=== PATIENT | male | born 1965 | race Caucasian/White ===

== ENCOUNTER 2017-03-18 20:00 | Emergency (ER) | payer MEDICAID ==
[2017-03-18] MEDS ORDERED: diazePAM 5 MG TABLET PO STA (20:40)
--- NOTE | 2017-03-18 20:43 | ED Physician Documentation ---
PD HPI FOCAL NEURO - Stated complaint Stated Complaint: DIZZY/HEADACHE - Chief complaint Chief Complaint: Neuro - History obtained from History obtained from: Patient, Family () - History of Present Illness Timing - onset: Other (51-year-old gentleman who has had occasional fleeting vertigo in the past has had it more consistently since late morning today. It is worse, usually if he turns his head to the left. There is a mild frontal headache with it and he is under a lot of stress at work right now. He denies weakness, numbness, or tingling in the extremities. Of note it sounds like he has some sort of nephropathy and premature osteoporosis as well as gout. Currently on no medications.) Review of Systems Constitutional: denies: Fever, Chills Eyes: denies: Loss of vision, Decreased vision, Photophobia, Discharge, Irritation Ears: denies: Loss of hearing, Ear pain Nose: reports: Rhinorrhea / runny nose, Congestion Throat: denies: Sore throat PD PAST MEDICAL HISTORY - Past Medical History Cardiovascular: None Respiratory: None Neuro: None Endocrine/Autoimmune: None GI: None : Kidney stones HEENT: None Psych: Anxiety Musculoskeletal: None Derm: None - Past Surgical History Past Surgical History: No - Present Medications Home Medications: Ambulatory Orders Medication Instructions Recorded Confirmed Meclizine [Antivert] 25 mg PO Q6H PRN #20 tablet 03/18/17 - Allergies Allergies/Adverse Reactions: Allergies Allergy/AdvReac Type Severity Reaction Status Date / Time No Known Drug Allergies Allergy Verified 03/18/15 13:14 - Social History Does the pt smoke?: Yes Smoking Status: Current every day smoker Does the pt drink ETOH?: No Does the pt have substance abuse?: No - Immunizations Immunizations are current?: Yes - POLST Patient has POLST: No PD ED PE NORMAL - Vitals Vital signs reviewed: Yes - General General: Alert and oriented X 3, No acute distress - HEENT HEENT: PERRL, EOMI, Ears normal, Moist mucous membranes, Pharynx benign, Dentition benign - Neck Neck: Supple, no meningeal sign, No bony TTP - Cardiac Cardiac: RRR, No murmur - Respiratory Respiratory: No respiratory distress, Clear bilaterally - Abdomen Abdomen: Non tender - Derm Derm: Normal color, Warm and dry - Extremities Extremities: No edema, No calf tenderness / cord - Neuro Neuro: Alert and oriented X 3, 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 Positive [place]-Hallpike's test.) - Psych Psych: Normal mood, Normal affect Results - Vitals Vitals: Vital Signs - 24 hr 03/18/17 20:09 Temperature 36.3 C L Heart Rate 67 Respiratory 18 Rate Blood Pressure 178/97 H O2 Saturation 99 Oxygen O2 Source Room air - Labs Labs: Laboratory Tests 03/18/17 20:49 Sodium 140 Potassium 4.3 Chloride 101 Carbon Dioxide 31 Anion Gap 8.0 BUN 15 Creatinine 0.7 Estimated GFR (MDRD) 120 Glucose 102 H Calcium 9.5 Magnesium 1.9 - Rads (name of study) Head CT Radiology: EMP read contemporaneously (NAD) PD MEDICAL DECISION MAKING - ED course ED course: 51-year-old gentleman presents with what sounds like recurrent peripheral vertigo but there are some atypical symptoms and medical history. Including a history of nephropathy, and headache. Although he is under a lot of stress which may explain the headache. Departure - Departure Disposition: 01 Home, Self Care Clinical Impression: Peripheral vertigo Qualifiers: Laterality: left Qualified Code(s): H81.392 - Other peripheral vertigo, left ear Headache Qualifiers: Headache type: tension-type Headache chronicity pattern: acute headache Intractability: not intractable Qualified Code(s): G44.209 - Tension-type headache, unspecified, not intractable Condition: Good Record reviewed to determine appropriate education?: Yes Instructions: ED Cephalgia Unspecified, ED BPV Vertigo Prescriptions: Meclizine [Antivert] 25 mg PO Q6H PRN #20 tablet PRN Reason: Dizziness Comments: Call your doctor to arrange a follow-up appointment, make the next available appointment. In the interim, return anytime if worse or if new symptoms develop. Your blood pressure was elevated today on check into the emergency department. This does not mean that you have hypertension, it is a common phenomenon to come to the emergency department and have elevated blood pressure. I recommend that she see her primary care physician within the week to have it rechecked when you are feeling better.
[2017-03-18] MEDS ORDERED: diazePAM 5 MG TABLET PO ONE (20:48)
[2017-03-18 21:03] LABS: CALCIUM 9.5 mg/dL (8.5-10.3); CREATININE 0.7 mg/dL (0.6-1.2); MAGNESIUM 1.9 mg/dL (1.7-2.8); POTASSIUM 4.3 mmol/L (3.5-5.0)
--- NOTE | 2017-03-18 21:20 | CT Preliminary Report ---
Exam: CT Head W/O IMPRESSION: Normal head CT. [facility] SITE ID: [id number]
--- NOTE | 2017-03-18 21:23 | CT Report ---
EXAM: CT HEAD EXAM DATE: 03/18/2017 09:02 PM. CLINICAL HISTORY: Vertigo headache. COMPARISON: None. TECHNIQUE: Multiaxial CT images were obtained from the foramen magnum to the vertex. IV contrast: Non e. Reformats: Coronal. In accordance with CT protocol optimization, one or more of the following dose reduction techniques w ere utilized for this exam: automated exposure control, adjustment of mA and/or KV based on patient s ize, or use of iterative reconstructive technique. FINDINGS: Parenchyma: No intraparenchymal hemorrhage. No evidence of mass, midline shift, or CT findings of inf arction. Hollis-white differentiation is distinct. Extraaxial Spaces: Normal for age. No subdural or epidural collections. Ventricles: Normal in size and position. Sinuses: Imaged paranasal sinuses, orbits, and mastoids show no significant abnormality. Bones: Unremarkable. Other: None. IMPRESSION: Normal head CT. [facility] Referring Provider Line: [phone] SITE ID: [id number]
[2017-03-18] MEDS ORDERED: MECLIZINE 12.5 MG TABLET PO STA (21:40)
[2017-03-18] MEDS ORDERED: MECLIZINE 12.5 MG TABLET PO ONE (21:48)
[2017-03-18 21:55] VITALS: BP 159/92
== END 2017-03-18 21:53 | disposition home or self-care (01) ==
LOC: ED 20:00
DX: H81.392 Other peripheral vertigo, left ear (principal); G44.209 Tension-type headache, unspecified, not intractable; F17.200 Nicotine dependence, unspecified, uncomplicated; R03.0 Elevated blood-pressure reading, without diagnosis of hypertension
CPT/HCPCS: 36415; 70450; 80048; 83735; 99283; A9270

== ENCOUNTER 2017-07-07 12:53 | Outpatient (CLI) | payer MEDICAID ==
--- NOTE | 2017-07-08 10:20 | DEXA Report ---
DEXA: 07/07/2017 CLINICAL INDICATION: Osteoporosis, Fosamax therapy. TECHNIQUE: Dual energy x-ray absorptiometry (DXA) was performed on a [employer] system. Regions measured are the AP spine, femoral neck, and, if needed, forearm. COMPARISON: None. In accordance with the International Society for Clinical Densitometry (ISCD) guidelines, data from previous exams may be reanalyzed using current recommendations and techniques. This is done to allow a more accurate basis for comparison with the current study. FINDINGS LUMBAR SPINE DATA: REGION BMD (g/cm/cm) T-SCORE Z-SCORE L1 1.033 -1.1 -0.4 L2 1.146 -0.8 -0.1 L3 1.352 0.9 1.6 L4 1.176 -0.5 0.1 TOTAL 1.185 -0.3 0.4 NOTE: All evaluable vertebrae are used for classification. RIGHT HIP DATA: REGION BMD (g/cm/cm) T-SCORE Z-SCORE Neck 0.695 -2.9 -1.9 TOTAL 0.765 -2.3 -1.7 NOTE: The femoral neck or total proximal femur, whichever is lowest, is used for classification. IMPRESSION THE WHO CLASSIFICATION BASED ON THE INTERNATIONAL REFERENCE STANDARD: OSTEOPOROSIS (REFERENCE RIGHT FEMORAL NECK). FRACTURE RISK: HIGH. RECOMMENDATION: Patients with diagnosis of osteoporosis or osteopenia should have regular bone mineral density assessment. For those eligible for Medicare, routine testing is allowed once every 2 years. Testing frequency can be increased for patients who have rapidly progressing disease or for those who are receiving medical therapy to restore bone mass. COMMENT: World Health Organization (WHO) definitions for osteoporosis and osteopenia: NORMAL BMD: T-score at -1.0 or higher, fracture risk is low. OSTEOPENIA BMD: T-score between -1.0 and -2.5, fracture risk is increased. OSTEOPOROSIS BMD: T-score at -2.5 or lower, fracture risk high. National Osteoporosis Foundation recommends: 1. Obtain adequate dietary calcium (at least 1200 mg per day) and vitamin D (400 -800 international units per day). 2. Participate, as appropriate, in regular weightbearing and muscle- strengthening exercise. 3. Avoid tobacco use and reduce alcohol and caffeine intake. 4. For more detailed information see the website at www.NOF.org. MTDD
== END 2017-07-07 12:54 | disposition home or self-care (01) ==
LOC: DI 12:53
PROVIDERS: ATTEND Nurse Practitioner Family
DX: M81.0 Age-related osteoporosis without current pathological fracture (principal); Z79.83 Long term (current) use of bisphosphonates
CPT/HCPCS: 77080

== ENCOUNTER 2018-01-27 11:23 | Outpatient (CLI) | payer MEDICAID ==
[2018-01-27 17:26] LABS: BASOPHILS # (AUTO) 0.1 10^3/uL (0.0-0.1); BASOPHILS % (AUTO) 0.8 %; EOSINOPHILS # (AUTO) 0.2 10^3/uL (0.0-0.7); EOSINOPHILS % (AUTO) 3.4 %; HGB - HEMOGLOBIN 15.7 g/dL (14.0-18.0); LYMPHOCYTES # (AUTO) 1.7 10^3/uL (1.5-3.5); LYMPHOCYTES % (AUTO) 26.6 %; MEAN CORPUSCULAR HEMOGLOBIN 35.4 pg (27.0-31.0); MEAN CORPUSCULAR HGB CONC 34.1 g/dL (32.0-36.0); MEAN CORPUSCULAR VOLUME 103.8 fL (80.0-94.0); MONOCYTES # (AUTO) 0.5 10^3/uL (0.0-1.0); MONOCYTES % (AUTO) 8.3 %; NEUTROPHILS % (AUTO) 60.9 %; PLT - PLATELET COUNT 175 10^3/uL (130-450); RED BLOOD COUNT 4.43 10^6/uL (4.70-6.10); WHITE BLOOD COUNT 6.5 x10^3/uL (4.8-10.8)
[2018-01-27 17:43] LABS: ALBUMIN 4.5 g/dL (3.2-5.5); ALBUMIN/GLOBULIN RATIO 1.5 (1.0-2.2); ALKALINE PHOSPHATASE 53 IU/L (42-121); ALT ALANINE AMINOTRANSFERASE 31 IU/L (10-60); AST ASPARTATE AMINOTRANSFERASE 42 IU/L (10-42); BILIRUBIN,TOTAL 0.5 mg/dL (0.2-1.0); BUN - BLOOD UREA NITROGEN 11 mg/dL (6-20); CALCIUM 9.4 mg/dL (8.5-10.3); CARBON DIOXIDE - CO2 28 mmol/L (21-32); CHLORIDE 103 mmol/L (101-111); CHOLESTEROL 251 mg/dL; CREATININE 0.7 mg/dL (0.6-1.2); GFR - MDRD 119 (>89); GLUCOSE 109 mg/dL (70-100); HDL CHOLESTEROL 42 mg/dL; SODIUM 139 mmol/L (135-145); TOTAL PROTEIN 7.5 g/dL (6.7-8.2); URIC ACID 7.6 mg/dL (2.6-7.2)
[2018-01-27 17:55] LABS: THYROID STIMULATING HORMONE 1.81 uIU/mL (0.34-5.60)
[2018-01-27 18:02] LABS: LDL CHOLESTEROL,DIRECT 99 mg/dL; LDLD/HDL RATIO 2.4 (<3.6)
== END 2018-01-27 11:24 | disposition home or self-care (01) ==
LOC: LAB.F 11:23
PROVIDERS: ATTEND Nurse Practitioner Family
DX: M81.0 Age-related osteoporosis without current pathological fracture (principal); Z13.228 Encounter for screening for other metabolic disorders; Z13.1 Encounter for screening for diabetes mellitus; Z13.220 Encounter for screening for lipoid disorders; Z12.5 Encounter for screening for malignant neoplasm of prostate; Z13.29 Encounter for screening for other suspected endocrine disorder; M10.9 Gout, unspecified; Z13.0 Encounter for screening for diseases of the blood and blood-forming organs and certain disorders involving the immune mechanism
CPT/HCPCS: 36415; 80053; 80061; 82306; 82652; 83721; 83970; 84153; 84443; 84550; 85025

== ENCOUNTER 2018-02-03 11:12 | Outpatient (CLI) | payer MEDICAID ==
[2018-02-03 18:25] LABS: HB2 TOTAL 17.1 g/dL; HEMOGLOBIN A1C 0.6 g/dL; HEMOGLOBIN A1C % 5.4 % (4.6-6.2)
[2018-02-03 18:41] LABS: FOLATE 2.46 ng/mL (5.90 - >24.8)
== END 2018-02-03 11:13 | disposition home or self-care (01) ==
LOC: LAB.F 11:12
PROVIDERS: ATTEND Nurse Practitioner Family
DX: D53.9 Nutritional anemia, unspecified (principal); R73.9 Hyperglycemia, unspecified
CPT/HCPCS: 36415; 82607; 82746; 82977; 83036

== ENCOUNTER 2018-07-11 09:29 | Outpatient (CLI) | payer MEDICAID ==
[2018-07-11 17:52] LABS: BASOPHILS # (AUTO) 0.1 10^3/uL (0.0-0.1); BASOPHILS % (AUTO) 0.8 %; EOSINOPHILS # (AUTO) 0.2 10^3/uL (0.0-0.7); EOSINOPHILS % (AUTO) 2.9 %; HGB - HEMOGLOBIN 15.2 g/dL (14.0-18.0); LYMPHOCYTES # (AUTO) 1.8 10^3/uL (1.5-3.5); LYMPHOCYTES % (AUTO) 27.3 %; MEAN CORPUSCULAR HEMOGLOBIN 34.6 pg (27.0-31.0); MEAN CORPUSCULAR HGB CONC 33.7 g/dL (32.0-36.0); MEAN CORPUSCULAR VOLUME 102.9 fL (80.0-94.0); MEAN PLATELET VOLUME 9.5 fL (7.4-11.4); MONOCYTES # (AUTO) 0.6 10^3/uL (0.0-1.0); MONOCYTES % (AUTO) 8.5 %; NEUTROPHILS # (AUTO) 4.1 10^3/uL (1.5-6.6); NEUTROPHILS % (AUTO) 60.5 %; PLT - PLATELET COUNT 202 10^3/uL (130-450); RED BLOOD COUNT 4.38 10^6/uL (4.70-6.10); RED CELL DISTRIBUTION WIDTH 13.4 % (12.0-15.0); WHITE BLOOD COUNT 6.7 x10^3/uL (4.8-10.8)
[2018-07-11 18:16] LABS: ALBUMIN 4.4 g/dL (3.2-5.5); ALBUMIN/GLOBULIN RATIO 1.3 (1.0-2.2); ALKALINE PHOSPHATASE 55 IU/L (42-121); ALT ALANINE AMINOTRANSFERASE 24 IU/L (10-60); AST ASPARTATE AMINOTRANSFERASE 34 IU/L (10-42); BILIRUBIN,TOTAL 0.9 mg/dL (0.2-1.0); BUN - BLOOD UREA NITROGEN 9 mg/dL (6-20); CALCIUM 8.9 mg/dL (8.5-10.3); CARBON DIOXIDE - CO2 30 mmol/L (21-32); CHLORIDE 99 mmol/L (101-111); CHOL/HDL RATIO 5.3 (<5.0); CHOLESTEROL 246 mg/dL; CREATININE 0.6 mg/dL (0.6-1.2); GFR - MDRD 142 (>89); GLUCOSE 102 mg/dL (70-100); HDL CHOLESTEROL 46 mg/dL; SODIUM 139 mmol/L (135-145); TOTAL PROTEIN 7.7 g/dL (6.7-8.2); URIC ACID 7.6 mg/dL (2.6-7.2)
[2018-07-11 18:35] LABS: FOLATE 12.34 ng/mL (5.90 - >24.8)
[2018-07-11 18:46] LABS: LDL CHOLESTEROL,DIRECT 122 mg/dL; LDLD/HDL RATIO 2.7 (<3.6)
== END 2018-07-11 23:59 | disposition home or self-care (01) ==
LOC: LAB.S 09:29
PROVIDERS: ATTEND Nurse Practitioner
DX: E78.1 Pure hyperglyceridemia (principal); E55.9 Vitamin D deficiency, unspecified; D53.9 Nutritional anemia, unspecified; I10 Essential (primary) hypertension; M10.9 Gout, unspecified
CPT/HCPCS: 36415; 80053; 80061; 82306; 82607; 82746; 83721; 84550; 85025

== ENCOUNTER 2018-11-30 10:23 | Outpatient (CLI) | payer MEDICAID ==
[2018-11-30 18:11] LABS: CHOL/HDL RATIO 4.6 (<5.0); CHOLESTEROL 243 mg/dL; HDL CHOLESTEROL 53 mg/dL; LDL CHOLESTEROL,CALCULATED 155 mg/dL; LDL/HDL RATIO 2.9 (<3.6); VLDL CHOLESTEROL 35 mg/dL
== END 2018-11-30 10:24 | disposition home or self-care (01) ==
LOC: LAB.F 10:23
PROVIDERS: ATTEND Nurse Practitioner
DX: E78.1 Pure hyperglyceridemia (principal); Z12.11 Encounter for screening for malignant neoplasm of colon
CPT/HCPCS: 36415; 80061; 83721

== ENCOUNTER 2019-10-12 08:26 | Outpatient (CLI) | payer MEDICAID ==
[2019-10-12 10:50] LABS: ALBUMIN 4.2 g/dL (3.2-5.5); ALBUMIN/GLOBULIN RATIO 1.6 (1.0-2.2); ALKALINE PHOSPHATASE 33 IU/L (42-121); ALT ALANINE AMINOTRANSFERASE 16 IU/L (10-60); AST ASPARTATE AMINOTRANSFERASE 19 IU/L (10-42); BILIRUBIN,TOTAL 0.6 mg/dL (0.2-1.0); BUN - BLOOD UREA NITROGEN 8 mg/dL (6-20); CALCIUM 9.7 mg/dL (8.5-10.3); CARBON DIOXIDE - CO2 26 mmol/L (21-32); CHLORIDE 103 mmol/L (101-111); CHOLESTEROL 210 mg/dL; CREATININE 0.7 mg/dL (0.6-1.2); GFR - MDRD 118 (>89); GLUCOSE 107 mg/dL (70-100); HDL CHOLESTEROL 42 mg/dL; LDL CHOLESTEROL,CALCULATED 110 mg/dL; LDL/HDL RATIO 2.6 (<3.6); SODIUM 137 mmol/L (135-145); TOTAL PROTEIN 6.9 g/dL (6.7-8.2); VLDL CHOLESTEROL 58 mg/dL
== END 2019-10-12 08:27 | disposition home or self-care (01) ==
LOC: LAB.S 08:26
PROVIDERS: ATTEND Internal Medicine
DX: E78.1 Pure hyperglyceridemia (principal); K52.9 Noninfective gastroenteritis and colitis, unspecified
CPT/HCPCS: 36415; 80053; 80061; 83516; 83721

== ENCOUNTER 2020-05-07 08:00 | Outpatient (CLI) | payer MEDICAID ==
--- NOTE | 2020-05-07 16:24 | XRAY Report ---
PROCEDURE: Lumbar Spine Complete INDICATIONS: LUMBOSACRAL RADICULOPATHY TECHNIQUE: 4 views of the lumbar spine were acquired. COMPARISON: None. FINDINGS: Bones: 5 [id number] vertebrae are present. Moderate disc height loss at L5-S1. Mild disc hei ght loss at the other levels. Trace retrolisthesis L1 on 2 and L2 on 3. Trace retrolisthesis L4 on 5. No vertebral body compression fractures. No suspicious bony lesions. Oblique images demonstrate no pars defects. Soft tissues: Overlying bowel gas pattern is normal. No suspicious soft tissue calcifications. Mod erate abdominal aortic calcification. IMPRESSION: 1. Mild to moderate multilevel spondylosis, most disc height loss at the L5-S1 level. Reviewed by: Kitty Grubbs MD on 05/07/2020 4:23 PM PDT Approved by: Kitty Grubbs MD on 05/07/2020 4:23 PM PDT Station ID: [id number]
== END 2020-05-07 23:59 | disposition home or self-care (01) ==
LOC: DI.S 08:00
PROVIDERS: ATTEND Physician Assistant Medical
DX: M47.27 Other spondylosis with radiculopathy, lumbosacral region (principal)
CPT/HCPCS: 72110

== ENCOUNTER 2021-05-01 08:51 | Outpatient (CLI) | payer MEDICAID ==
[2021-05-01 08:58] LABS: MUDS CUTOFF CONCENTRATIONS CUTOFF CONC BELOW:
[2021-05-01 14:33] LABS: BASOPHILS # (AUTO) 0.1 10^3/uL (0.0-0.1); BASOPHILS % (AUTO) 0.9 %; EOSINOPHILS # (AUTO) 0.3 10^3/uL (0.0-0.7); EOSINOPHILS % (AUTO) 5.1 %; HCT - HEMATOCRIT 44.5 % (42.0-52.0); LYMPHOCYTES # (AUTO) 2.1 10^3/uL (1.5-3.5); LYMPHOCYTES % (AUTO) 39.3 %; MEAN CORPUSCULAR HEMOGLOBIN 34.6 pg (27.0-31.0); MEAN CORPUSCULAR HGB CONC 33.7 g/dL (32.0-36.0); MEAN CORPUSCULAR VOLUME 102.8 fL (80.0-94.0); MEAN PLATELET VOLUME 10.5 fL (7.4-11.4); MONOCYTES # (AUTO) 0.6 10^3/uL (0.0-1.0); MONOCYTES % (AUTO) 10.5 %; NEUTROPHILS # (AUTO) 2.3 10^3/uL (1.5-6.6); NEUTROPHILS % (AUTO) 43.8 %; PLT - PLATELET COUNT 231 10^3/uL (130-450); RED BLOOD COUNT 4.33 10^6/uL (4.70-6.10); RED CELL DISTRIBUTION WIDTH 13.4 % (12.0-15.0); WHITE BLOOD COUNT 5.3 x10^3/uL (4.8-10.8)
[2021-05-01 14:53] LABS: AMPHETAMINE SCREEN,URINE NEGATIVE (NEGATIVE); BARBITURATE SCREEN,UR NEGATIVE (NEGATIVE); BENZODIAZEPINES SCREEN, URINE POSITIVE (NEGATIVE); COCAINE SCREEN URINE NEGATIVE (NEGATIVE); METHADONE SCREEN, URINE NEGATIVE (NEGATIVE); METHAMPHETAMINES SCREEN, URINE NEGATIVE (NEGATIVE); OPIATE SCREEN, URINE NEGATIVE (NEGATIVE); OXYCODONE SCREEN, URINE NEGATIVE (NEGATIVE); PROPOXYPHENE SCREEN, URINE NEGATIVE (NEGATIVE); THC CANNABINOID SCREEN, URINE POSITIVE (NEGATIVE); TRICYCLIC ANTIDEPRESSANT,URINE NEGATIVE (NEGATIVE)
[2021-05-01 15:12] LABS: ALBUMIN 4.4 g/dL (3.2-5.5); BILIRUBIN,DIRECT 0.1 mg/dL (0.1-0.5); BILIRUBIN,TOTAL 0.5 mg/dL (0.2-1.0); TOTAL PROTEIN 7.2 g/dL (6.7-8.2)
== END 2021-05-01 08:52 | disposition home or self-care (01) ==
LOC: LAB.S 08:51
PROVIDERS: ATTEND Psychiatry & Neurology Psychiatry
DX: Z79.899 Other long term (current) drug therapy (principal)
CPT/HCPCS: 36415; 80076; 80306; 85025

== ENCOUNTER 2022-04-06 08:00 | Outpatient (CLI) | payer MEDICAID ==
--- NOTE | 2022-04-06 14:18 | XRAY Report ---
PROCEDURE: Lumbar Spine 2 View INDICATIONS: LUMBOSACRAL RADICULOPATHY TECHNIQUE: 3 views of the lumbar spine were acquired. COMPARISON: None. FINDINGS: Bones: 5 [id number]-[id number] vertebrae are present. There is leftward curvature of the thoracolumbar sp ine. There is normal bony alignment. No vertebral body compression fractures. No suspicious bony le sions. Disc space narrowing at L5-S1 consistent with disc disease. Soft tissues: Overlying bowel gas pattern is normal. No suspicious soft tissue calcifications. The aorta has atherosclerotic calcifications. IMPRESSION: 1. Multilevel degenerative changes of the lumbar spine. 2. Leftward curvature of the thoracolumbar spine. 3. Disc disease of L5-S1. 4. Atherosclerotic calcifications of the abdominal aorta with no aneurysmal dilatation. Reviewed by: Randal Faith on 04/06/2022 2:17 PM PDT Approved by: Randal Faith on 04/06/2022 2:17 PM PDT Station ID: [id number]
--- NOTE | 2022-04-06 14:20 | XRAY Report ---
PROCEDURE: Hip w/Pelvis 2-3V LT INDICATIONS: LUMBOSACRAL RADICULOPATHY TECHNIQUE: AP pelvis with lateral view(s) of the left hip(s). COMPARISON: None. FINDINGS: Bones: No fractures or dislocations. Pelvic ring appears intact. No suspicious bony lesions. Minim al degenerative changes. Soft tissues: The visualized bowel gas pattern is normal. No suspicious soft tissue calcifications. IMPRESSION: Minimal degenerative changes. If symptoms continue, consider MRI. Reviewed by: Randal Faith on 04/06/2022 2:18 PM PDT Approved by: Randal Faith on 04/06/2022 2:18 PM PDT Station ID: [id number]
== END 2022-04-06 23:59 | disposition home or self-care (01) ==
LOC: DI.S 08:00
PROVIDERS: ATTEND Registered Nurse
DX: M47.26 Other spondylosis with radiculopathy, lumbar region (principal); M51.17 Intervertebral disc disorders with radiculopathy, lumbosacral region; M43.8X5 Other specified deforming dorsopathies, thoracolumbar region

== ENCOUNTER 2022-04-27 08:09 | Outpatient (CLI) | payer MEDICAID ==
--- NOTE | 2022-04-27 16:34 | DEXA Report ---
PROCEDURE: Dexa Spine and/or Hip INDICATIONS: SCREENING FOR OSTEOPOROSIS TECHNIQUE: Dual energy x-ray absorptiometry (DXA) was performed on a [employer] System. Regions measur ed are the AP Spine, femoral neck, and if needed forearm. COMPARISON: 07/07/2017 FINDINGS: Lumbar Spine: Bone Mineral Density 1.177 g/cm/cm,T score -0.4, compared to -0.3 Left Hip: Bone Mineral Density 0.674 g/cm/cm,T score -3.0, compared to -2.3 Left Femoral Neck: Bone Mineral Density 0.598 g/cm/cm, T score -3.6, compared to -2.9 (T score greater or equal to -1.0: NORMAL) (T score from -1.1 to -2.4: OSTEOPENIA) (T score less than or equal to -2.5 to: OSTEOPOROSIS) Impression: Progressive bone mineral density loss within the left hip and femoral neck now demonstrating osteopor osis. Patients with diagnosis of osteoporosis or osteopenia should have regular bone mineral density assess ment. For those eligible for Medicare, routine testing is allowed once every 2 years. Testing frequ ency can be increased for patients who have rapidly progressing disease or for those who are receivin g medical therapy to restore bone mass. Reviewed by: Brittaney Lundberg MD on 04/27/2022 4:33 PM PDT Approved by: Brittaney Lundberg MD on 04/27/2022 4:33 PM PDT Station ID: [id number]
== END 2022-04-27 08:10 | disposition home or self-care (01) ==
LOC: DI 08:09
PROVIDERS: ATTEND Registered Nurse
DX: Z13.820 Encounter for screening for osteoporosis (principal); M81.0 Age-related osteoporosis without current pathological fracture

== ENCOUNTER 2022-06-02 08:00 | Outpatient (CLI) | payer MEDICAID ==
[2022-06-02 14:41] LABS: FECAL OCCULT BLOOD (FIT) NEGATIVE (NEGATIVE)
== END 2022-06-02 23:59 | disposition home or self-care (01) ==
LOC: LAB.S 08:00
PROVIDERS: ATTEND Registered Nurse
DX: Z12.11 Encounter for screening for malignant neoplasm of colon (principal)
CPT/HCPCS: 82274

== ENCOUNTER 2023-03-10 08:00 | Outpatient (CLI) | payer OTHER ==
[2023-03-10 10:50] LABS: BILIRUBIN,URINE NEGATIVE (NEGATIVE); GLUCOSE, URINE (UA) NEGATIVE (NEGATIVE); KETONES,URINE (UA) NEGATIVE (NEGATIVE); LEUKOCYTE ESTERASE, URINE NEGATIVE (NEGATIVE); NITRITE,URINE NEGATIVE (NEGATIVE); OCCULT BLOOD,URINE TRACE-LYSE (NEGATIVE); PH,URINE 7.5 PH (5.0-7.5); PROTEIN,URINE NEGATIVE (NEGATIVE); UROBILINOGEN,URINE 0.2 (NORMAL) E.U./dL (NORMAL)
[2023-03-10 10:51] LABS: CLARITY,URINE CLEAR (CLEAR)
[2023-03-10 11:05] LABS: BACTERIA,URINE Few /HPF (None Seen); RBC,URINE 0-5 /HPF (0-5); SQUAMOUS EPITHELIAL CELL,UR RARE Squamous (<= Few); WBC,URINE 0-3 /HPF (0-3)
== END 2023-03-10 23:59 | disposition home or self-care (01) ==
LOC: LAB 08:00
PROVIDERS: ATTEND Urology
DX: R31.9 Hematuria, unspecified (principal)
CPT/HCPCS: 81001; 87086

== ENCOUNTER 2023-04-03 22:08 | Outpatient (CLI) | payer OTHER | END 2023-04-03 22:09 | disposition critical access hospital (66) | LOC: EMS 22:08 | DX: Z04.3 Encounter for examination and observation following other accident (principal); M25.552 Pain in left hip | CPT/HCPCS: A0425; A0427 ==

== ENCOUNTER 2023-04-03 22:47 | Inpatient (IN) | payer OTHER ==
--- NOTE | 2023-04-03 22:32 | ED Physician Documentation ---
PD HPI LOWER EXT INJURY - Stated complaint Stated Complaint: L HIP INJ - History obtained from History obtained from: Patient, EMS - Additional information Additional information: BIBA. HPI from patient, EMS. 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 c/o sudden onset left hip pain when he fell, unable to move LLE without severe pain. Denies head injury, denies LOC. He was given total of 200 micrograms fentanyl en route by EMS with improvement in pain (from 04/18 to 02/15). Pain is worse with movement. Review of Systems Cardiac: reports: Reviewed and negative Respiratory: reports: Reviewed and negative GI: reports: Reviewed and negative Skin: denies: Abrasion (s), Laceration (s) Musculoskeletal: reports: Joint pain (left hip). denies: Neck pain, Back pain Neurologic: denies: Generalized weakness, Focal weakness, Numbness, Headache, Head injury, LOC PD PAST MEDICAL HISTORY - Past Medical History Past Medical History: Yes Cardiovascular: Hypertension, High cholesterol - Present Medications Home Medications: Ambulatory Orders Medication Instructions Recorded Confirmed Amlodipine Besylate/Benazepril 1 each PO QPM 04/04/23 04/04/23 [Lotrel 10-20 mg Capsule] Buspirone HCl 10 mg PO BID 04/04/23 04/04/23 Cetirizine HCl [Allergy] 1 tab PO QPM 04/04/23 04/04/23 Cholecalciferol [Vitamin D3] 1 cap PO QPM 04/04/23 04/04/23 Fenofibrate Nanocrystallized 145 mg PO QPM 04/04/23 04/04/23 [Tricor] Multivitamin 1 tab PO QPM 04/04/23 04/04/23 - Allergies Allergies/Adverse Reactions: Allergies Allergy/AdvReac Type Severity Reaction Status Date / Time No Known Drug Allergies Allergy Verified 04/03/23 22:51 PD ED PE NORMAL - Vitals Vital signs reviewed: Yes - General General: Alert and oriented X 3, No acute distress (NAD at rest, obvious painful distress with any movement involving LLE), Well developed/nourished - HEENT HEENT: Atraumatic, PERRL, EOMI - Neck Neck: Supple, no meningeal sign, No bony TTP - Cardiac Cardiac: RRR, No murmur - Respiratory Respiratory: No respiratory distress, Clear bilaterally - Abdomen Abdomen: Soft, Non tender - Derm Derm: Normal color, Warm and dry - Neuro Neuro: Alert and oriented 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 strong left DP pulse, brisk capillary refill in toes, LTS intact ) Results - Vitals Vitals: Vital Signs - 24 hr 04/04/23 04/04/23 04/04/23 00:30 02:00 03:30 Heart Rate 76 74 80 Respiratory 15 16 16 Rate Blood Pressure 117/73 125/85 H 137/86 H O2 Saturation 91 L 93 95 If not protocol 2 2 : Oxygen Flow, liters/minute Oxygen O2 Source Nasal cannula - Labs Labs: Laboratory Tests 04/03/23 04/03/23 23:08 23:08 WBC 6.3 RBC 3.88 L Hgb 12.9 L Hct 39.3 L MCV 101.3 H MCH 33.2 H MCHC 32.8 RDW 13.6 Plt Count 188 MPV 9.5 Neut # (Auto) 3.0 Lymph # (Auto) 2.3 [place] # (Auto) 0.5 Eos # (Auto) 0.4 Baso # (Auto) 0.1 Absolute Nucleated RBC 0.00 Nucleated RBC % 0.0 Sodium 137 Potassium 3.7 Chloride 101 Carbon Dioxide 23 Anion Gap 13.0 BUN 15 Creatinine 0.9 Estimated GFR (MDRD) 88 L Glucose 131 H Calcium 8.6 Total Bilirubin 0.4 AST 20 ALT 22 Alkaline Phosphatase 32 L Total Protein 6.9 Albumin 4.6 Globulin 2.3 Albumin/Globulin Ratio 2.0 Lipase 128 H - Rads (name of study) pelvis xray Relevant Findings:: Prelim report reviewed, See rad report PD Medical Decision Making - ED course Complexity details: reviewed results, re-evaluated patient, considered differential, d/w patient ED course: Initial order for left hip x-rays with 1 view pelvis are entered, but due to severe exacerbation of the pain with any movement, this was limited to 1 view pelvis; this x-ray demonstrates comminuted intertrochanteric left hip fracture. D/W Dr. Baltazar (on-call orthopedic surgeon for [facility]); patient appropriate for admission to [facility] to hospitalist service. I then discussed the case with the telehealth physician gas station clerk who will admit to [facility] hospitalist service. Departure - Departure Disposition: 66 [facility] DC/Xfer Clinical Impression: Hip fracture, left Qualifiers: Encounter type: initial encounter Fracture type: closed Qualified Code(s): S72.002A - Fracture of unspecified part of neck of left femur, initial encounter for closed fracture Condition: Good Discharge Date/Time: 04/04/23 04:21
[2023-04-03 23:13] LABS: BASOPHILS # (AUTO) 0.1 10^3/uL (0.0-0.1); BASOPHILS % (AUTO) 1.1 %; EOSINOPHILS # (AUTO) 0.4 10^3/uL (0.0-0.7); HCT - HEMATOCRIT 39.3 % (42.0-52.0); HGB - HEMOGLOBIN 12.9 g/dL (14.0-18.0); LYMPHOCYTES # (AUTO) 2.3 10^3/uL (1.5-3.5); MEAN CORPUSCULAR HEMOGLOBIN 33.2 pg (27.0-31.0); MEAN CORPUSCULAR HGB CONC 32.8 g/dL (32.0-36.0); MEAN CORPUSCULAR VOLUME 101.3 fL (80.0-94.0); MEAN PLATELET VOLUME 9.5 fL (7.4-11.4); MONOCYTES # (AUTO) 0.5 10^3/uL (0.0-1.0); MONOCYTES % (AUTO) 7.4 %; PLT - PLATELET COUNT 188 10^3/uL (130-450); RED BLOOD COUNT 3.88 10^6/uL (4.70-6.10); RED CELL DISTRIBUTION WIDTH 13.6 % (12.0-15.0); WHITE BLOOD COUNT 6.3 x10^3/uL (4.8-10.8)
--- OUTSIDE RECORDS SUMMARY | 2023-04-03 23:21 | EXTERNAL MEDICAL SUMMARY RPT | Continuity of Care Document ---
Author Name Unknown Address [address] [place] [address] Phone Organization [facility] Address [address] [place] [address] Phone Care Team Providers Care Exercise Physiology Professor Name Role Phone Unavailable Unavailable Unavailable Mary Morales Unavailable Unavailable Medications date description facility 2023-03-08 00:00 [facility]pirone [facility] [place] 2023-03-09 00:00 buspirone [facility] 2023-02-24 00:00 fenofibrate nanocrystallized [facility] [place] 2023-02-25 00:00 fenofibrate nanocrystallized [facility] [place] 2023-03-05 00:00 fenofibrate nanocrystallized [facility] [place] 2023-03-08 00:00 fenofibrate nanocrystallized [facility] [place] 2023-03-09 00:00 fenofibrate nanocrystallized [facility] [place] 2023-03-10 00:00 fenofibrate nanocrystallized [facility] [place] 2023-02-24 00:00 prednisone [facility] [place] 2023-02-24 00:00 tamsulosin [facility] [place] 2023-02-24 00:00 prednisone [facility] [place] 2023-02-24 00:00 prednisone [facility] [place] 2023-03-08 00:00 buspirone [facility] [place] 2023-03-09 00:00 buspirone [facility] [place] 2023-02-24 00:00 prednisone [facility] [place] 2023-03-08 00:00 amlodipine-benazepril [facility] [place] 2023-03-09 00:00 amlodipine-benazepril [facility] [place] 2023-02-24 00:00 fenofibrate nanocrystallized [facility] [place] 2023-02-25 00:00 fenofibrate nanocrystallized [facility] [place] 2023-03-05 00:00 fenofibrate nanocrystallized [facility] [place] 2023-03-08 00:00 fenofibrate nanocrystallized [facility] [place] 2023-03-09 00:00 fenofibrate nanocrystallized [facility] [place] 2023-03-10 00:00 fenofibrate nanocrystallized [facility] [place] 2023-02-24 00:00 fenofibrate nanocrystallized [facility] [place] 2023-02-25 00:00 fenofibrate nanocrystallized [facility] [place] 2023-03-05 00:00 fenofibrate nanocrystallized [facility] [place] 2023-03-08 00:00 fenofibrate nanocrystallized [facility] [place] 2023-03-09 00:00 fenofibrate nanocrystallized [facility] [place] 2023-03-10 00:00 fenofibrate nanocrystallized [facility] [place] 2023-03-08 00:00 amlodipine-benazepril [facility] [place] 2023-03-09 00:00 amlodipine-benazepril [facility] [place] 2023-02-24 00:00 tamsulosin [facility] [place] 2023-03-08 00:00 buspirone [facility] [place] 2023-03-09 00:00 buspirone [facility] [place] 2023-02-24 00:00 tamsulosin [facility] [place] 2023-03-08 00:00 amlodipine-benazepril [facility] [place] 2023-03-09 00:00 amlodipine-benazepril [facility] [place] 2023-02-24 00:00 tamsulosin [facility] [place] 2023-03-08 00:00 buspirone [facility] [place] 2023-03-09 00:00 buspirone [facility] [place] 2023-03-08 00:00 amlodipine-benazepril [facility] [place] 2023-03-09 00:00 amlodipine-benazepril [facility] [place] 2023-02-24 00:00 fenofibrate nanocrystallized [facility] [place] 2023-02-25 00:00 fenofibrate nanocrystallized [facility] [place] 2023-03-05 00:00 fenofibrate nanocrystallized [facility] [place] 2023-03-08 00:00 fenofibrate nanocrystallized [facility] [place] 2023-03-09 00:00 fenofibrate nanocrystallized [facility] [place] 2023-03-10 00:00 fenofibrate nanocrystallized [facility] [place] Problems date description facility 2023-02-24 00:00 Vascular calcificati on, radiographic finding [facility] [place] 2023-02-24 00:00 Family history of alcoholism [facility] [place] 2023-02-24 00:00 Blood in urine [facility] [place] 2023-02-24 00:00 History of calculus of kidney [facility] [place] 2023-02-24 00:00 Other nonspecific (a bnormal) findings on radiological and other examinations of body structure [facility]-In [facility] [place] 2023-02-24 00:00 Hematuria, unspecified [facility] [place] 2023-02-24 00:00 Abnormal findings on diagnostic imaging of other specified body structures [facility]-In [facility] [place] 2023-02-24 00:00 Alcoholism in family [facility] [place] 2023-02-24 00:00 Family history of al cohol abuse and dependence [facility]-In [facility] [place] 2023-02-24 00:00 Personal history of urinary rebecca culi [facility] [place] 2023-02-25 00:00 Family history of alcoholism [facility] [place] 2023-02-25 00:00 Alcoholism in family [facility] [place] 2023-02-25 00:00 Family history of al cohol abuse and dependence [facility]-In [facility] [place] 2023-03-05 00:00 Family history of alcoholism [facility] [place] 2023-03-05 00:00 Alcoholism in family [facility] [place] 2023-03-05 00:00 Family history of al cohol abuse and dependence [facility]-In [facility] [place] 2023-03-08 00:00 Family history of alcoholism [facility] [place] 2023-03-08 00:00 Alcoholism in family [facility] [place] 2023-03-08 00:00 Family history of al cohol abuse and dependence [facility]-In [facility] [place] 2023-03-09 00:00 Family history of alcoholism [facility] [place] 2023-03-09 00:00 Alcoholism in family [facility] [place] 2023-03-09 00:00 Family history of al cohol abuse and dependence [facility]-In [facility] [place] 2023-03-10 00:00 Family history of alcoholism [facility] [place] 2023-03-10 00:00 Alcoholism in family [facility] [place] 2023-03-10 00:00 Family history of al cohol abuse and dependence Walk-In [facility] [place] Procedures date description facility 2023-02-24 00:00 Visit Code Hold [facility]-In [facility] [place] 2023-02-24 00:00 XR LUMBAR SPINE 2-3 VIEW [facility] [place] 2023-02-24 00:00 POC URINALYSIS DIP [facility] [place] 2023-03-10 00:00 UA W/Micro, C&S if Ind [facility] [place] Results/Labs test date facility value unit notes Social History date description facility 2023-02-24 00:00 Current every day smoker Walk-I n [facility] [place] Vital Signs date measurement value units 2023-02-24 00:00 BMI 30.12 kg/m2 2023-02-24 00:00 BP_diastolic 79 mmHg 2023-02-24 00:00 BP_systolic 133 mmHg 2023-02-24 00:00 heart_rate 83 /min 2023-02-24 00:00 height_metric 151.13 cm 2023-02-24 00:00 height_standard 59.5 in 2023-02-24 00:00 respiration_rate 15 /min 2023-02-24 00:00 temperature_metric 36.72 C 2023-02-24 00:00 temperature_standard 98.1 F 2023-02-24 00:00 weight_metric 68.55 kg 2023-02-24 00:00 weight_standard 151.13 lb 2023-03-10 00:00 BP_diastolic 89 mmHg 2023-03-10 00:00 BP_systolic 136 mmHg 2023-03-10 00:00 heart_rate 81 /min
[2023-04-03 23:27] LABS: ALBUMIN 4.6 g/dL (3.2-5.5); BILIRUBIN,TOTAL 0.4 mg/dL (0.2-1.0); CALCIUM 8.6 mg/dL (8.5-10.3); CREATININE 0.9 mg/dL (0.6-1.2); POTASSIUM 3.7 mmol/L (3.5-5.0); TOTAL PROTEIN 6.9 g/dL (6.7-8.2)
[2023-04-04] MEDS ORDERED: HYDROmorphone 1 MG/ML CARPUJECT IVP STA ×3 (01:19→01:37)
[2023-04-04] MEDS ORDERED: NICOTINE 14 MG PATCH TOP STA (01:25)
--- NOTE | 2023-04-04 01:44 | XRAY Report ---
PROCEDURE: Pelvis 1 View INDICATIONS: fall, left hip pain TECHNIQUE: 1 view(s) of the pelvis acquired. COMPARISON: None. FINDINGS: Bones: Comminuted trochanteric fracture of the left hip with varus angulation. No dislocation. No ot her fractures. Soft tissues: Visualized bowel gas pattern is normal. No suspicious soft tissue calcifications. IMPRESSION: Comminuted trochanteric fracture of the left hip with varus angulation. Reviewed by: Bethel Nicole MD on 04/04/2023 1:43 AM PDT Approved by: Bethel Nicole MD on 04/04/2023 1:43 AM PDT Station ID: [id number]
[2023-04-04] MEDS ORDERED: ONDANSETRON 4 MG/2 ML VIAL IVP PRN (03:37)
[2023-04-04] MEDS ORDERED: SODIUM CHLORIDE FLUSH 0.9% 10 ML SYRINGE IVP PRN (03:37)
[2023-04-04 03:49] LABS: MUDS CUTOFF CONCENTRATIONS CUTOFF CONC BELOW:
--- NOTE | 2023-04-04 03:58 | HISTORY & PHYSICAL EXAMINATION ---
Chief Complaint - Chief Complaint Chief Complaint: Hip pain History of Present Illness - History of Present Illness HPI Comment/Other: 57 y old male with PMH HTN, Hyperlipidemia, anxiety, osteoporosis came with with C/O hip pain. As per pt, he tripped and fell while going downstairs.Denies LOC or head injury, chest pain, SOB, AZEVEDO, fever, nausea, vomiting Xray showed communiated intertrochenteric fracture of left femur As per ER physcina, he consulted with ortho environmental associate (Dr Baltazar) In ER , patient received iv dilaudid Patient is admitted due to left hip fracture History - Past Medical History Cardiovascular: reports: None Respiratory: reports: None Endocrine/Autoimmune: reports: None GI: reports: None : reports: Kidney stones HEENT: reports: None Psych: reports: Anxiety Musculoskeletal: reports: None Derm: reports: None MRSA Hx?: No - POLST Patient has POLST: No Meds/Allgy - Home Medications Home Medications: Ambulatory Orders Medication Instructions Recorded Confirmed Amlodipine Besylate/Benazepril 1 each PO DAILY 04/04/23 04/04/23 [Lotrel 10-20 mg Capsule] Buspirone HCl 10 mg PO BID 04/04/23 04/04/23 Fenofibrate Nanocrystallized 145 mg PO DAILY 04/04/23 04/04/23 [Tricor] - Allergies Allergies/Adverse Reactions: Allergies Allergy/AdvReac Type Severity Reaction Status Date / Time No Known Drug Allergies Allergy Verified 04/03/23 22:51 Review of Systems - Other Findings Other Findings: 10 points systems were reviewed and were negative except mentioned in HPI Exam - Vital Signs Vital Signs: Vital Signs x48h Temp Pulse Resp BP Pulse Ox O2 Flow Rate 04/04/23 02:00 74 16 125/85 H 93 2 04/04/23 00:30 76 15 117/73 91 L 04/03/23 22:51 36.8 C 86 16 140/90 H 94 - Physical Exam General Appearance: positive: No acute distress Eyes Bilateral: positive: Normal inspection ENT: positive: ENT inspection nml Neck: positive: Nml inspection Respiratory: positive: Chest non-tender, Breath sounds nml Cardiovascular: positive: Regular rate & rhythm Abdomen: positive: Non-tender, Nml bowel sounds Extremities: positive: No pedal edema Neurologic/Psychiatric: positive: Oriented x3, Motor nml Conclusion/Plan - Lab Results Fish Bones: 04/03/23 23:08 04/03/23 23:08 - Other Other Results/Comments: A: Left hip fracture HTN Hyperlipidemia Anxiety osteoporosis Plan: Admit in Med surg NPO Per ER physician, he consulted with ortho environmental associate (Dr Baltazar) Dilaudid iv prn [place] prn Cont home meds supportive care DVT prophylaxic: SCD Full code Pt is admitted as inpatient as more than 2 midnight stay is expected
[2023-04-04 04:04] LABS: COCAINE SCREEN URINE NEGATIVE (NEGATIVE); THC CANNABINOID SCREEN, URINE POSITIVE (NEGATIVE)
[2023-04-04 04:05] LABS: AMPHETAMINE SCREEN,URINE NEGATIVE (NEGATIVE); BARBITURATE SCREEN,UR NEGATIVE (NEGATIVE); BENZODIAZEPINES SCREEN, URINE NEGATIVE (NEGATIVE); METHADONE SCREEN, URINE NEGATIVE (NEGATIVE); METHAMPHETAMINES SCREEN, URINE NEGATIVE (NEGATIVE); OPIATE SCREEN, URINE POSITIVE (NEGATIVE); OXYCODONE SCREEN, URINE NEGATIVE (NEGATIVE); PROPOXYPHENE SCREEN, URINE NEGATIVE (NEGATIVE); TRICYCLIC ANTIDEPRESSANT,URINE NEGATIVE (NEGATIVE)
[2023-04-04] MEDS: SODIUM CHLORIDE 0.9% 1,000 ML IV SCH ×2 (04:13→14:18)
[2023-04-04] MEDS: HYDROmorphone 0.5 MG/0.5 ML SYRINGE IVP PRN ×5 (04:20→16:14)
[2023-04-04] MEDS: SODIUM CHLORIDE FLUSH 0.9% 10 ML SYRINGE IVP SCH ×2 (08:53→16:14)
[2023-04-04] MEDS ORDERED: FENOFIBRATE 48 MG TABLET PO SCH (09:00)
[2023-04-04] MEDS ORDERED: TRANEXAMIC ACID 1,000 MG in SODIUM CHLORIDE 0.9% 100ML 100 ML IV STA (10:17)
[2023-04-04] MEDS ORDERED: GABAPENTIN 400 MG CAPSULE PO PRN (10:18)
--- NOTE | 2023-04-04 10:59 | HISTORY & PHYSICAL EXAMINATION ---
HPI - Admitted From Admitted from: ED - History Obtained From Records Reviewed: RN notes reviewed, Old records reviewed History obtained from: Patient, Family Exam limitations: No limitations - History of Present Illness Severity at the worst: reports: Moderate Pain Quality: reports: Sharp Context-Pain started w/: reports: Movement Timing: reports: Abrupt onset HPI Comment/Other: 57 yo male with acute left intertroch-subtroch femur fracture with history of prior Left supracondylar femur fracture 20 years ago fixed with a long supracondylar plate ([facility] in [place]--no operative records available). He had two tib-fib fractures of the left Lower extremity around the same time. was diagnosed with osteoporosis on DEXA scan and had endocrine evaluation which found no cause. Was on fosamax until developed jaw complications , and stopped several years ago. The accident occurred with a slip on a step in his home, causing him to fall from about 4 steps up. Denies LOC or other injury. 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 is in the hospital room and very involved in care--they would like for him to go home after surgery with [employer] if possible. PMHx: Anxiety on buspar, HTN, osteoporosis. Has chronic LBP and recently started w/u for kidney stones vs. LBP with the urologist Dr. Slaughter. CT scan scheduled. PSHx as above NKDA Meds: buspar 10mg bid, amlodipine/besylate Tox screen positive for opioids (he denies use at home--could've been from ER) and cannabis PMH/PSH - Past Medical History Cardiovascular: positive: Hypertension, High cholesterol Respiratory: positive: None Endocrine/Autoimmune: positive: None GI: positive: None : positive: Kidney stones HEENT: positive: None Psych: positive: Anxiety Musculoskeletal: positive: None Derm: positive: None MRSA Hx?: No Social & Family Hx - Social History Does the pt smoke?: Yes Smoking Status: Current every day smoker Does the pt drink ETOH?: No Does the pt have substance abuse?: No - POLST Patient has POLST: No Meds/Allgy - Home Medications Home Medications: Ambulatory Orders Medication Instructions Recorded Confirmed Amlodipine Besylate/Benazepril 1 each PO DAILY 04/04/23 04/04/23 [Lotrel 10-20 mg Capsule] Buspirone HCl 10 mg PO BID 04/04/23 04/04/23 Fenofibrate Nanocrystallized 145 mg PO DAILY 04/04/23 04/04/23 [Tricor] - Allergies Allergies/Adverse Reactions: Allergies Allergy/AdvReac Type Severity Reaction Status Date / Time No Known Drug Allergies Allergy Verified 04/03/23 22:51 Exam - Vital Signs Vital Signs: Vital Signs x48h Temp Pulse Pulse Resp BP BP Pulse Ox 04/04/23 07:35 37.0 C 76 16 133/76 H 98 04/04/23 04:58 04/04/23 04:26 36.8 C 72 18 116/68 97 04/04/23 03:30 80 16 137/86 H 95 O2 Flow Rate 04/04/23 07:35 04/04/23 04:58 2 04/04/23 04:26 2 04/04/23 03:30 2 - Physical Exam Extremities: positive: Other (Left lower extremity shortened and externally rotated. pain with log roll. 1+ DP/PT. CR<2s.) Neurologic/Psychiatric: positive: Oriented x3, Sensation nml Results - Lab Results Lab results reviewed: Yes Fish Bones: 04/03/23 23:08 04/03/23 23:08 Other Lab Results: Lab Results x24hrs 04/04/23 04/03/23 04/03/23 Range/Units 03:40 23:08 23:08 WBC 6.3 (4.8-10.8) x10^3/uL RBC 3.88 L (4.70-6.10) 10^6/uL Hgb 12.9 L (14.0-18.0) g/dL Hct 39.3 L (42.0-52.0) % MCV 101.3 H (80.0-94.0) fL MCH 33.2 H (27.0-31.0) pg MCHC 32.8 (32.0-36.0) g/dL RDW 13.6 (12.0-15.0) % Plt Count 188 (130-450) 10^3/uL MPV 9.5 (7.4-11.4) fL Neut # (Auto) 3.0 (1.5-6.6) 10^3/uL Lymph # (Auto) 2.3 (1.5-3.5) 10^3/uL Edgar # (Auto) 0.5 (0.0-1.0) 10^3/uL Eos # (Auto) 0.4 (0.0-0.7) 10^3/uL Baso # (Auto) 0.1 (0.0-0.1) 10^3/uL Absolute Nucleated RBC 0.00 x10^3/uL Nucleated RBC % 0.0 /100WBC Sodium 137 (135-145) mmol/L Potassium 3.7 (3.5-5.0) mmol/L Chloride 101 (101-111) mmol/L Carbon Dioxide 23 (21-32) mmol/L Anion Gap 13.0 (6-13) BUN 15 (6-20) mg/dL Creatinine 0.9 (0.6-1.2) mg/dL Estimated GFR (MDRD) 88 L (>89) Glucose 131 H (70-100) mg/dL Calcium 8.6 (8.5-10.3) mg/dL Total Bilirubin 0.4 (0.2-1.0) mg/dL AST 20 (10-42) IU/L ALT 22 (10-60) IU/L Alkaline Phosphatase 32 L (42-121) IU/L Total Protein 6.9 (6.7-8.2) g/dL Albumin 4.6 (3.2-5.5) g/dL Globulin 2.3 (2.1-4.2) g/dL Albumin/Globulin Ratio 2.0 (1.0-2.2) Lipase 128 H (22-51) U/L Urine Opiates Screen POSITIVE H (NEGATIVE) Ur Oxycodone Screen NEGATIVE (NEGATIVE) Urine Methadone Screen NEGATIVE (NEGATIVE) Ur Propoxyphene Screen NEGATIVE (NEGATIVE) Ur Barbiturates Screen NEGATIVE (NEGATIVE) Ur Tricyclics Screen NEGATIVE (NEGATIVE) Ur Phencyclidine Scrn NEGATIVE (NEGATIVE) Ur Amphetamine Screen NEGATIVE (NEGATIVE) U Methamphetamines Scrn NEGATIVE (NEGATIVE) U Benzodiazepines Scrn NEGATIVE (NEGATIVE) Urine Cocaine Screen NEGATIVE (NEGATIVE) U Cannabinoids Screen POSITIVE H (NEGATIVE) - Diagnostic Imaging Results Diagnostic Imaging Results: positive: Prelim report reviewed Impression/Plan - Problem List Problem List: 57yo male with unusual history of osteoporosis. He has had no recent treatment for this and endocrine consult was in the distant past. There is no endocrine consult available here at the hospital. Awaiting IM clearance. Treatment options and risks and benefits of each were discussed in detail with patient. He and his were informed of risks of infection, bleeding, injury to nerves, blood vessels, or tendons, fracture malunion, delayed union, or non-union, other complications including hardware problems requiring further surgery, blood cl ots, medical complications, and . They understand and consent to the two immediate surgical options, which are IM nail vs ORIF with a large frag trochanteric plate, depending on how the fracture reduces. Understands a nail may require removal of the shaft screws from the supracondylar plate in the distal femur. (Have ordered IM nail, trochanteric plate, broken screw removal set, femoral distractor. Will start case on fracture table and if reduction is no possible convert to lateral decubitus on standard table and do the trochanteric plate.) Anesthesia consulted. Will need maximal muscle relaxation throughout the case.
[2023-04-04] MEDS ORDERED: TRANEXAMIC ACID IN NACL 1,000 MG/100 ML BAG IV SCH (11:00)
--- NOTE | 2023-04-04 11:20 | XRAY Report ---
PROCEDURE: Femur 2V LT INDICATIONS: prior internal surgical fixation with trauma TECHNIQUE: 4 views of the femur were acquired. COMPARISON: None. FINDINGS: Bones: Status post fixation of distal femur and proximal tibia. Hardware is intact. There is a commi nuted mildly displaced intertrochanteric fracture of the left femur.. No suspicious bony lesions. Soft tissues: No suspicious soft tissue calcifications or masses. IMPRESSION: Status post distal femur and proximal tibia fixation without evidence of hardware complication. Commi nuted trochanteric left femur fracture Reviewed by: Lissy Griffin MD on 04/04/2023 11:18 AM PDT Approved by: Lissy Griffin MD on 04/04/2023 11:18 AM PDT Station ID: [id number]
--- NOTE | 2023-04-04 11:22 | XRAY Report ---
PROCEDURE: Chest 1 View X-Ray INDICATIONS: pre-operative eval TECHNIQUE: One view of the chest was acquired. COMPARISON: None. FINDINGS: Surgical changes and devices: None. Lungs and pleura: No pleural effusions or pneumothorax. Streaky opacities in left lung base. Mediastinum: Mediastinal contours appear normal. Heart size is normal. Bones and chest wall: No suspicious bony lesions. Overlying soft tissues appear unremarkable. IMPRESSION: Left basilar streaky opacities, likely atelectasis versus aspiration. Reviewed by: Lissy Griffin MD on 04/04/2023 11:21 AM PDT Approved by: Lissy Griffin MD on 04/04/2023 11:21 AM PDT Station ID: [id number]
--- NOTE | 2023-04-04 11:35 | PHARMACY PROGRESS NOTE ---
- Best Possible Medication History Admit Date and Time: 04/04/23 0337 Processed by: Pharmacy Medication History completed: Yes Patient Interview: Completed Secondary Source(s): Written medication list As the person ultimately responsible for medication therapy, providers are able to order a medication from an existing home medication list in [facility] via the "Reconcile Routine" prior to Confirmation of that medication by support worker. Such practice is discouraged except when the physician, in their clinical judgment, deems that a medical need exists for a medication without regard to previous use. Patient interview to review prescription and OTC medications.
[2023-04-04] MEDS: busPIRone 5 MG TABLET PO SCH ×2 (11:52→20:56)
[2023-04-04 11:54] LABS: PT - PROTHROMBIN TIME 11.3 secs (9.9-12.6)
[2023-04-04] MEDS ORDERED: FENOFIBRATE 48 MG TABLET PO ONE (12:00)
[2023-04-04 12:01] LABS: PARTIAL THROMBOPLASTIN TIME 27.9 secs (24.9-33.3)
[2023-04-04 12:02] LABS: ESTIMATED AVERAGE GLUCOSE 120 mg/dL (70-100); HEMOGLOBIN A1c% 5.8 % (4.27-6.07)
--- NOTE | 2023-04-04 12:04 | CT Report ---
PROCEDURE: LOWER EXTREMITY WO - LT INDICATIONS: Pre-operative planning TECHNIQUE: Noncontrast 3-mm axial sections acquired from the distal tibial shaft to the talar dome, with coronal and sagittal reformats. For radiation dose reduction, the following was used: automated exposure c ontrol, adjustment of mA and/or kV according to patient size. COMPARISON: Same day left femur radiograph. FINDINGS: Image quality: Excellent. Bones: There is again seen comminuted and posteriorly displaced intertrochanteric fracture of the le ft femur. The left hip joint is in place. Soft tissues: Mild soft tissue swelling around the fracture. Vascular calcifications are present. Fo liv catheter in situ. Impression: Comminuted and mildly posteriorly displaced left femur intertrochanteric fracture. Left h ip joint is intact. Reviewed by: Lissy Griffin MD on 04/04/2023 12:02 PM PDT Approved by: Lissy Griffin MD on 04/04/2023 12:02 PM PDT Station ID: [id number]
--- NOTE | 2023-04-04 12:08 | PROVIDER PROGRESS NOTE ---
Progress Note Patient admitted this morning by Brenda hernandezurnist. Patient fell and sustained left hip fracture. Patient is generally doing well. Admitted for pain control, orthopedic consult. Ortho has seen patient and plans for OR tomorrow. We will add p.o. oxycodone for pain control. Resume home medications for anxiety and hypertension, hypertriglyceridemia.
[2023-04-04] MEDS: oxyCODONE 5 MG TABLET PO PRN ×3 (12:39→20:54)
[2023-04-04] MEDS: CYCLOBENZAPRINE 10 MG TABLET PO PRN ×2 (12:45→20:55)
[2023-04-04] MEDS: ACETAMINOPHEN 325 MG TABLET PO PRN ×2 (17:00→20:55)
[2023-04-04] MEDS: CALAMINE/ZINC OXIDE 177 ML BOTTLE TOP PRN (20:54)
[2023-04-04] MEDS: CETIRIZINE 10 MG TABLET PO SCH (20:55)
[2023-04-04] MEDS: CELECOXIB 100 MG CAPSULE PO SCH (20:55)
[2023-04-04] MEDS: amLODIPine 5 MG TABLET PO SCH (20:56)
[2023-04-05] MEDS: SODIUM CHLORIDE 0.9% 1,000 ML IV SCH ×2 (00:19→10:15)
[2023-04-05] MEDS: ACETAMINOPHEN 325 MG TABLET PO PRN (02:23)
[2023-04-05] MEDS: oxyCODONE 5 MG TABLET PO PRN ×3 (02:24→18:46)
[2023-04-05] MEDS: SODIUM CHLORIDE FLUSH 0.9% 10 ML SYRINGE IVP SCH ×3 (07:54→17:04)
--- NOTE | 2023-04-05 08:54 | ANESTHESIA ---
Pre-Anesthesia VS, & Labs - Diagnosis L hip fracture - Procedure L hip nailing Vital Signs: Temp Pulse Resp BP Pulse Ox O2 Flow Rate 36.4 C L 64 20 143/78 H 95 0.5 04/05/23 08:00 04/05/23 08:00 04/05/23 08:00 04/05/23 08:00 04/05/23 08:00 04/04/23 19:00 Height: 5 ft 10 in Weight (kg): 70.5 kg Body Mass Index: 22.3 BMI Classification: Normal - NPO >8 hours Last Fluid Intake: po meds at 0900 - Lab Results Current Lab Results: Laboratory Tests 04/04/23 12:00: Blood Type Recheck A POSITIVE 04/04/23 11:40: PT 11.3, INR 1.0, APTT 27.9 04/04/23 11:40: Estimat Average Glucose 120 H, Hemoglobin A1c % 5.8 04/04/23 11:40: Blood Type A POSITIVE, Antibody Screen NEGATIVE 04/04/23 03:40: Urine Opiates Screen POSITIVE H, Ur Oxycodone Screen NEGATIVE, Urine Methadone Screen NEGATIVE, Ur Propoxyphene Screen NEGATIVE, Ur Barbiturates Screen NEGATIVE, Ur Tricyclics Screen NEGATIVE, Ur Phencyclidine Scrn NEGATIVE, Ur Amphetamine Screen NEGATIVE, U Methamphetamines Scrn NEGATIVE, U Benzodiazepines Scrn NEGATIVE, Urine Cocaine Screen NEGATIVE, U Cannabinoids Screen POSITIVE H 04/03/23 23:08: Sodium 137, Potassium 3.7, Chloride 101, Carbon Dioxide 23, Anion Gap 13.0, BUN 15, Creatinine 0.9, Estimated GFR (MDRD) 88 L, Glucose 131 H , Calcium 8.6, Total Bilirubin 0.4, AST 20, ALT 22, Alkaline Phosphatase 32 L, T otal Protein 6.9, Albumin 4.6, Globulin 2.3, Albumin/Globulin Ratio 2.0, Lipase 128 H 04/03/23 23:08: WBC 6.3, RBC 3.88 L, Hgb 12.9 L, Hct 39.3 L, MCV 101.3 H, MCH 33.2 H, MCHC 32.8, RDW 13.6, Plt Count 188, MPV 9.5, Neut # (Auto) 3.0, Lymph # (Auto) 2.3, [place] # (Auto) 0.5, Eos # (Auto) 0.4, Baso # (Auto) 0.1, Absolute Nucleated RBC 0.00, Nucleated RBC % 0.0 Lab results reviewed: Yes Fish Bones: 04/03/23 23:08 04/03/23 23:08 Home Medications and Allergies Home Medications: Ambulatory Orders Amlodipine Besylate/Benazepril [Lotrel 10-20 mg Capsule] 1 each PO QPM 04/04/23 Buspirone HCl 10 mg PO BID 04/04/23 Cetirizine HCl [Allergy] 1 tab PO QPM 04/04/23 Cholecalciferol [Vitamin D3] 1 cap PO QPM 04/04/23 Fenofibrate Nanocrystallized [Tricor] 145 mg PO QPM 04/04/23 Multivitamin 1 tab PO QPM 04/04/23 Active Medications Acetaminophen (Acetaminophen 325 Mg Tablet) 650 mg PO Q4HR [facility] Amlodipine Besylate (Amlodipine 5 Mg Tablet) 5 mg PO QPM [facility] Last Admin: 04/04/23 20:56 Dose: 5 mg Buspirone HCl (Buspirone 5 Mg Tablet) 10 mg PO BID [facility] Last Admin: 04/04/23 20:56 Dose: 10 mg Calamine (Calamine/Zinc Oxide 177 Ml Bottle) 1 applic TOP PRN PRN PRN Reason: SKIN CARE Last Admin: 04/04/23 20:54 Dose: 1 applic Celecoxib (Celecoxib 100 Mg Capsule) 200 mg PO BID [facility] Last Admin: 04/04/23 20:55 Dose: 200 mg Cetirizine HCl (Cetirizine 10 Mg Tablet) 10 mg PO QPM [facility] Last Admin: 04/04/23 20:55 Dose: 10 mg Cholecalciferol (Cholecalciferol 400 Unit Tablet) 400 unit PO DAILY [facility] Cyclobenzaprine HCl (Cyclobenzaprine 10 Mg Tablet) 10 mg PO TID PRN PRN Reason: Spasms Last Admin: 04/04/23 20:55 Dose: 10 mg Docusate Sodium (Docusate Sodium 250 Mg Capsule) 250 - 500 mg PO DAILY [facility] Fenofibrate (Fenofibrate 48 Mg Tablet) 144 mg PO QPM [facility] Gabapentin (Gabapentin 400 Mg Capsule) 800 mg PO TID PRN PRN Reason: PAIN 5-7 Hydromorphone HCl (Hydromorphone 0.5 Mg/0.5 Ml Syringe) 0.5 mg IVP Q2H PRN PRN Reason: Pain 8 to 10 Last Admin: 04/04/23 16:14 Dose: 0.5 mg Sodium Chloride (Normal Saline 0.9%) 1,000 mls @ 100 mls/hr IV .Q10H [facility] Last Admin: 04/05/23 00:19 Dose: 100 mls/hr Ondansetron HCl (Ondansetron 4 Mg/2 Ml Vial) 4 mg IVP Q6HR PRN PRN Reason: Nausea / Vomiting Oxycodone HCl (Oxycodone 5 Mg Tablet) 10 mg PO Q4HR PRN PRN Reason: Moderate Pain (Level 4-6) Last Admin: 04/05/23 02:24 Dose: 10 mg Sodium Chloride (Sodium Chloride Flush 0.9% 10 Ml Syringe) 10 ml IVP PRN PRN PRN Reason: NEEDED PER PROVIDER ORDERS Sodium Chloride (Sodium Chloride Flush 0.9% 10 Ml Syringe) 10 ml IVP 0100,0900,1700 [facility] Last Admin: 04/05/23 07:54 Dose: Not Given Amlodipine Besylate/Benazepril [Lotrel 10-20 mg Capsule] 1 each PO QPM 04/04/23 Buspirone HCl 10 mg PO BID 04/04/23 Cetirizine HCl [Allergy] 1 tab PO QPM 04/04/23 Cholecalciferol [Vitamin D3] 1 cap PO QPM 04/04/23 Fenofibrate Nanocrystallized [Tricor] 145 mg PO QPM 04/04/23 Multivitamin 1 tab PO QPM 04/04/23 Allergies/Adverse Reactions: Allergies Allergy/AdvReac Type Severity Reaction Status Date / Time No Known Drug Allergies Allergy Verified 04/03/23 22:51 Anes History & Medical History - Anesthetic History Anesthesia Complications: reports: No previous complications Family history of Anesthesia Complications: Denies Family history of Malignant Hyperthermia: Denies - Medical History Cardiovascular: reports: Hypertension, High cholesterol Pulmonary: reports: None Gastrointestinal: reports: None Urinary: reports: Kidney stones Musculoskeletal: reports: None Endocrine/Autoimmune: reports: None Blood Disorders: reports: None Skin: reports: None Smoking Status: Current every day smoker - Surgical History Orthopedic: reports: Other (multiple L LE surgeries) Exam General: Alert, Oriented x3, Cooperative Dental: WNL Mouth Openin Fingerbreadth Neck Mobility: Normal Mallampati classification: II Thyromental Distance: 4-6 cm Respiratory: Lungs clear, Normal breath sounds, No respiratory distress Cardiovascular: Regular rate Neurological: Normal speech Mental/Cognitive Status: Alert/Oriented X3, Normal for patient Cognitive Status: Within normal limits Plan Anesthesia Type: General, Spinal (refuses spinal r/t past experience) Consent for Procedure(s) Verified and Reviewed: Yes Code Status: Attempt Resuscitation ASA classification: 2-Mild systemic disease Is this case an emergency?: No
[2023-04-05] MEDS: CHOLECALCIFEROL 400 UNIT TABLET PO SCH (08:58)
[2023-04-05] MEDS: busPIRone 5 MG TABLET PO SCH ×2 (08:59→20:14)
[2023-04-05] MEDS: ACETAMINOPHEN 325 MG TABLET PO SCH ×2 (08:59→14:24)
[2023-04-05] MEDS: CELECOXIB 100 MG CAPSULE PO SCH ×2 (08:59→20:14)
[2023-04-05] MEDS ORDERED: DOCUSATE SODIUM 250 MG CAPSULE PO SCH (09:00)
--- NOTE | 2023-04-05 09:20 | PROVIDER PROGRESS NOTE ---
Assessment/Plan - Problem List (1) Hip fracture, left Qualifiers: Encounter type: initial encounter Fracture type: closed Qualified Code(s): S72.002A - Fracture of unspecified part of neck of left femur, initial encounter for closed fracture Assessment/Plan: * Pt s/p mechanical fall downstairs at home * Admitted for L comminuted and displaced left intertrochanteric femur fracture * Patient is stable, with pain well controlled * Ortho planning to take patient to the OR later today * Start Lovenox tomorrow postop * PT/OT evals postop (2) HTN (hypertension) Qualifiers: Hypertension type: primary hypertension Qualified Code(s): I10 - Essential (primary) hypertension Assessment/Plan: * BP moderately well controlled * Continue home amlodipine * Anticipate BP will improve postop with improved pain control (3) HLD (hyperlipidemia) Qualifiers: Hyperlipidemia type: pure hypertriglyceridemia Qualified Code(s): E78.1 - Pure hyperglyceridemia Assessment/Plan: * Stable * Continue home fenofibrate (4) DELL (generalized anxiety disorder) Assessment/Plan: * Patient complained of anxiety at baseline * Stable with home meds, continue BuSpar - Current Meds Current Meds: Current Medications Generic Name Dose Route Start Last Admin Trade Name Freq PRN Reason Stop Dose Admin Acetaminophen 650 mg 04/05/23 09:00 04/05/23 08:59 Acetaminophen 325 Mg Tablet PO 650 mg Q4HR FREDA Administration Amlodipine Besylate 5 mg 04/04/23 21:00 04/04/23 20:56 Amlodipine 5 Mg Tablet PO 5 mg QPM FREDA Administration Buspirone HCl 10 mg 04/04/23 12:00 04/05/23 08:59 Buspirone 5 Mg Tablet PO 10 mg BID FREDA Administration Calamine 1 applic 04/04/23 15:44 04/04/23 20:54 Calamine/Zinc Oxide 177 Ml Bottle TOP 1 applic PRN PRN Administration SKIN CARE Celecoxib 200 mg 04/04/23 21:00 04/05/23 08:59 Celecoxib 100 Mg Capsule PO 200 mg BID FREDA Administration Cetirizine HCl 10 mg 04/04/23 21:00 04/04/23 20:55 Cetirizine 10 Mg Tablet PO 10 mg QPM FREDA Administration Cholecalciferol 400 unit 04/05/23 09:00 04/05/23 08:58 Cholecalciferol 400 Unit Tablet PO 400 unit DAILY [facility]EDA Administration Cyclobenzaprine HCl 10 mg 04/04/23 12:34 04/04/23 20:55 Cyclobenzaprine 10 Mg Tablet PO 10 mg TID PRN Administration Spasms Docusate Sodium 250 - 500 mg 04/05/23 09:00 04/05/23 08:58 Docusate Sodium 250 Mg Capsule PO 250 mg DAILY [facility]A Administration Hydromorphone HCl 0.5 mg 04/04/23 03:37 04/04/23 16:14 Hydromorphone 0.5 Mg/0.5 Ml Syringe IVP 0.5 mg Q2H PRN Administration Pain 8 to 10 Sodium Chloride 1,000 mls @ 100 mls/hr 04/04/23 04:00 04/05/23 00:19 Normal Saline 0.9% IV 100 mls/hr .Q10H [facility]EDA Administration Oxycodone HCl 10 mg 04/04/23 11:27 04/05/23 08:58 Oxycodone 5 Mg Tablet PO 10 mg Q4HR PRN Administration Moderate Pain (Level 4-6) Sodium Chloride 10 ml 04/04/23 09:00 04/05/23 09:00 Sodium Chloride Flush 0.9% 10 Ml Syringe IVP 10 ml 0100,0900,1700 FREDA Administration - Lab Result Lab results reviewed: Yes Fish Bone Diagrams: 04/03/23 23:08 04/03/23 23:08 - Additional Planning My Orders: My Active Orders 04/04/23 11:27 oxyCODONE [Roxicodone] 10 mg PO Q4HR PRN 04/04/23 12:00 busPIRone [Buspar] 10 mg PO BID 04/04/23 12:34 Cyclobenzaprine [Flexeril] 10 mg PO TID PRN 04/04/23 21:00 Cetirizine [ZyrTEC] 10 mg PO QPM amLODIPine [Norvasc] 5 mg PO QPM 04/05/23 09:00 Cholecalciferol [Vitamin D3] 400 unit PO DAILY 04/05/23 21:00 Fenofibrate [Tricor] 144 mg PO QPM Subjective - Subjective Patient Reports: Feeling Better, Pain Objective Vital Signs: Vital Signs - 24 hr 04/04/23 04/04/23 04/04/23 11:54 15:43 19:00 Temperature 37.2 C Heart Rate [ 70 Brachial] Respiratory 16 Rate Blood Pressure 142/82 H [Right Brachial artery] O2 Saturation 94 If not protocol 2 0.5 0.5 : Oxygen Flow, liters/minute 04/04/23 04/05/23 23:52 08:00 Temperature 36.4 C L 36.4 C L Heart Rate [ 66 64 Brachial] Respiratory 18 20 Rate Blood Pressure 134/78 H 143/78 H [Right Brachial artery] O2 Saturation 92 95 If not protocol : Oxygen Flow, liters/minute Oxygen O2 Source Room air I&O (Last 24 Hrs): Intake and Output Totals x24h 04/03/23 04/04/23 04/05/23 23:59 23:59 23:59 Intake Total 1450 1300 Output Total 2525 625 Balance -1075 675 General: Alert, Oriented x3 HEENT: Atraumatic, EOMI Neuro: Alert, CN 2-12 Grossly Intact Cardiovascular: Regular rate, Normal S1, Normal S2 Respiratory: Chest non-tender, No respiratory distress, Breath sounds nml Abdomen: Normal bowel sounds, Soft Extremities: No clubbing, No cyanosis, No edema - Results Results: Laboratory Results WBC 6.3 x10^3/uL (4.8-10.8) 04/03/23 23:08 RBC 3.88 10^6/uL (4.70-6.10) L 04/03/23 23:08 Hgb 12.9 g/dL (14.0-18.0) L 04/03/23 23:08 Hct 39.3 % (42.0-52.0) L 04/03/23 23:08 MCV 101.3 fL (80.0-94.0) H 04/03/23 23:08 MCH 33.2 pg (27.0-31.0) H 04/03/23 23:08 MCHC 32.8 g/dL (32.0-36.0) 04/03/23 23:08 RDW 13.6 % (12.0-15.0) 04/03/23 23:08 Plt Count 188 10^3/uL (130-450) 04/03/23 23:08 MPV 9.5 fL (7.4-11.4) 04/03/23 23:08 Neut # (Auto) 3.0 10^3/uL (1.5-6.6) 04/03/23 23:08 Lymph # (Auto) 2.3 10^3/uL (1.5-3.5) 04/03/23 23:08 [place] # (Auto) 0.5 10^3/uL (0.0-1.0) 04/03/23 23:08 Eos # (Auto) 0.4 10^3/uL (0.0-0.7) 04/03/23 23:08 Baso # (Auto) 0.1 10^3/uL (0.0-0.1) 04/03/23 23:08 Absolute Nucleated RBC 0.00 x10^3/uL 04/03/23 23:08 Nucleated RBC % 0.0 /100WBC 04/03/23 23:08 PT 11.3 secs (9.9-12.6) 04/04/23 11:40 INR 1.0 (0.8-1.2) 04/04/23 11:40 APTT 27.9 secs (24.9-33.3) 04/04/23 11:40 Sodium 137 mmol/L (135-145) 04/03/23 23:08 Potassium 3.7 mmol/L (3.5-5.0) 04/03/23 23:08 Chloride 101 mmol/L (101-111) 04/03/23 23:08 Carbon Dioxide 23 mmol/L (21-32) 04/03/23 23:08 Anion Gap 13.0 (6-13) 04/03/23 23:08 BUN 15 mg/dL (6-20) 04/03/23 23:08 Creatinine 0.9 mg/dL (0.6-1.2) 04/03/23 23:08 Estimated GFR (MDRD) 88 (>89) L 04/03/23 23:08 Glucose 131 mg/dL (70-100) H 04/03/23 23:08 Estimat Average Glucose 120 mg/dL (70-100) H 04/04/23 11:40 Hemoglobin A1c % 5.8 % (4.27-6.07) 04/04/23 11:40 Calcium 8.6 mg/dL (8.5-10.3) 04/03/23 23:08 Total Bilirubin 0.4 mg/dL (0.2-1.0) 04/03/23 23:08 AST 20 IU/L (10-42) 04/03/23 23:08 ALT 22 IU/L (10-60) 04/03/23 23:08 Alkaline Phosphatase 32 IU/L (42-121) L 04/03/23 23:08 Total Protein 6.9 g/dL (6.7-8.2) 04/03/23 23:08 Albumin 4.6 g/dL (3.2-5.5) 04/03/23 23:08 Globulin 2.3 g/dL (2.1-4.2) 04/03/23 23:08 Albumin/Globulin Ratio 2.0 (1.0-2.2) 04/03/23 23:08 Lipase 128 U/L (22-51) H 04/03/23 23:08 Urine Opiates Screen POSITIVE (NEGATIVE) H 04/04/23 03:40 Ur Oxycodone Screen NEGATIVE (NEGATIVE) 04/04/23 03:40 Urine Methadone Screen NEGATIVE (NEGATIVE) 04/04/23 03:40 Ur Propoxyphene Screen NEGATIVE (NEGATIVE) 04/04/23 03:40 Ur Barbiturates Screen NEGATIVE (NEGATIVE) 04/04/23 03:40 Ur Tricyclics Screen NEGATIVE (NEGATIVE) 04/04/23 03:40 Ur Phencyclidine Scrn NEGATIVE (NEGATIVE) 04/04/23 03:40 Ur Amphetamine Screen NEGATIVE (NEGATIVE) 04/04/23 03:40 U Methamphetamines Scrn NEGATIVE (NEGATIVE) 04/04/23 03:40 U Benzodiazepines Scrn NEGATIVE (NEGATIVE) 04/04/23 03:40 Urine Cocaine Screen NEGATIVE (NEGATIVE) 04/04/23 03:40 U Cannabinoids Screen POSITIVE (NEGATIVE) H 04/04/23 03:40 Blood Type A POSITIVE 04/04/23 11:40 Blood Type Recheck A POSITIVE 04/04/23 12:00 Antibody Screen NEGATIVE 04/04/23 11:40 ABX Reporting Has patient been on IV antibiotics over the past 48 hours?: No Current Medications - Current Medications Current Medications: Current Medications Generic Name Dose Route Start Last Admin Trade Name Freq PRN Reason Stop Dose Admin Acetaminophen 650 mg 04/05/23 09:00 04/05/23 08:59 Acetaminophen 325 Mg Tablet PO 650 mg Q4HR [facility]EDA Administration Amlodipine Besylate 5 mg 04/04/23 21:00 04/04/23 20:56 Amlodipine 5 Mg Tablet PO 5 mg QPM FREDA Administration Buspirone HCl 10 mg 04/04/23 12:00 04/05/23 08:59 Buspirone 5 Mg Tablet PO 10 mg BID FREDA Administration Calamine 1 applic 04/04/23 15:44 04/04/23 20:54 Calamine/Zinc Oxide 177 Ml Bottle TOP 1 applic PRN PRN Administration SKIN CARE Celecoxib 200 mg 04/04/23 21:00 04/05/23 08:59 Celecoxib 100 Mg Capsule PO 200 mg BID FREDA Administration Cetirizine HCl 10 mg 04/04/23 21:00 04/04/23 20:55 Cetirizine 10 Mg Tablet PO 10 mg QPM FREDA Administration Cholecalciferol 400 unit 04/05/23 09:00 04/05/23 08:58 Cholecalciferol 400 Unit Tablet PO 400 unit DAILY [facility]EDA Administration Cyclobenzaprine HCl 10 mg 04/04/23 12:34 04/04/23 20:55 Cyclobenzaprine 10 Mg Tablet PO 10 mg TID PRN Administration Spasms Docusate Sodium 250 - 500 mg 04/05/23 09:00 04/05/23 08:58 Docusate Sodium 250 Mg Capsule PO 250 mg DAILY [facility]A Administration Hydromorphone HCl 0.5 mg 04/04/23 03:37 04/04/23 16:14 Hydromorphone 0.5 Mg/0.5 Ml Syringe IVP 0.5 mg Q2H PRN Administration Pain 8 to 10 Sodium Chloride 1,000 mls @ 100 mls/hr 04/04/23 04:00 04/05/23 00:19 Normal Saline 0.9% IV 100 mls/hr .Q10H [facility]EDA Administration Oxycodone HCl 10 mg 04/04/23 11:27 04/05/23 08:58 Oxycodone 5 Mg Tablet PO 10 mg Q4HR PRN Administration Moderate Pain (Level 4-6) Sodium Chloride 10 ml 04/04/23 09:00 04/05/23 09:00 Sodium Chloride Flush 0.9% 10 Ml Syringe IVP 10 ml 0100,0900,1700 FREDA Administration
[2023-04-05] MEDS: NICOTINE 14 MG PATCH TOP SCH (10:14)
[2023-04-05] MEDS ORDERED: ONDANSETRON 4 MG/2 ML VIAL IVP PRN ×3 (12:20→16:25)
[2023-04-05] MEDS ORDERED: PROPOFOL 200 MG/20 ML VIAL IVP ONE (12:20)
[2023-04-05] MEDS ORDERED: ROCURONIUM 50 MG/5 ML VIAL ONE ×2 (12:20→14:31)
[2023-04-05] MEDS ORDERED: NALOXONE 0.4 MG/ML VIAL IVP PRN ×2 (12:20→16:25)
[2023-04-05] MEDS ORDERED: fentaNYL 100 MCG/2 ML VIAL ONE ×2 (12:20→14:48)
[2023-04-05] MEDS ORDERED: MIDAZOLAM 2 MG/2 ML VIAL ONE (12:20)
[2023-04-05] MEDS ORDERED: fentaNYL 100 MCG/2 ML VIAL IVP PRN ×2 (12:20→16:25)
[2023-04-05] MEDS ORDERED: LIDOCAINE-PF 2% 10 ML AMP SUBQ ONE (12:20)
[2023-04-05] MEDS ORDERED: HYDROmorphone 0.5 MG/0.5 ML SYRINGE IVP PRN ×2 (12:20→16:25)
[2023-04-05] MEDS ORDERED: METOCLOPRAMIDE 10 MG/2 ML VIAL IVP PRN ×2 (12:20→16:25)
[2023-04-05] MEDS ORDERED: ePHEDrine 50 MG/ML VIAL IVP PRN ×2 (12:20→16:25)
[2023-04-05] MEDS ORDERED: ATROPINE ABBOJECT 1 MG/10 ML SYRINGE IVP PRN ×2 (12:20→16:25)
[2023-04-05] MEDS ORDERED: MORPHINE 2 MG/ML CARPUJECT IVP PRN ×2 (12:20→16:25)
[2023-04-05] MEDS ORDERED: TRANEXAMIC ACID 1,000 MG/10 ML VIAL ONE (12:34)
[2023-04-05] MEDS ORDERED: ceFAZolin 1 GM VIAL ONE (12:34)
[2023-04-05] MEDS ORDERED: SODIUM CHLORIDE 0.9% 10 ML VIAL IVP ONE ×2 (12:34→12:35)
[2023-04-05] MEDS ORDERED: LACTATED RINGERS 1,000 ML IV SCH ×2 (13:00→16:25)
[2023-04-05] MEDS ORDERED: ONDANSETRON 4 MG/2 ML VIAL ONE (13:32)
[2023-04-05] MEDS ORDERED: DEXAMETHASONE 4 MG/ML VIAL ONE (13:33)
[2023-04-05] MEDS ORDERED: ROPIVACAINE 0.5% PF 20 ML VIAL ONE (14:31)
[2023-04-05] MEDS ORDERED: LIDOCAINE-MPF 1% 30 ML VIAL ONE ×2 (14:31→14:32)
[2023-04-05] MEDS ORDERED: KETOROLAC 30 MG/ML VIAL ONE (14:31)
[2023-04-05] MEDS ORDERED: LIDOCAINE 1% 50 ML MDV SUBQ ONE (14:39)
[2023-04-05] MEDS ORDERED: ROPIVACAINE 0.5% PF 20 ML VIAL SUBQ ONE ×2 (14:43)
[2023-04-05] MEDS ORDERED: KETOROLAC 30 MG/ML VIAL IVP ONE (14:45)
[2023-04-05] MEDS ORDERED: VANCOMYCIN 1 GM VIAL ONE (15:32)
[2023-04-05] MEDS ORDERED: SUGAMMADEX 200 MG/2 ML VIAL IVP ONE (15:37)
[2023-04-05] MEDS ORDERED: EPINEPHrine 1 MG/ML AMP ONE (15:38)
[2023-04-05] MEDS ORDERED: VANCOMYCIN 1 GM VIAL MC ONE (15:44)
[2023-04-05] MEDS ORDERED: EPINEPHrine 1 MG/ML AMP IJ ONE (15:44)
--- NOTE | 2023-04-05 15:54 | OPERATIVE REPORT ---
Operative Report - General Admit Date: 04/04/23 Planned Procedure: Intramedullary nail left femur Pre-Op Diagnosis: left hip intertrochanteric fracture above old DCS supracondylar femur plate Procedure Performed: IMN left hip femur fracture Post Op Diagnosis: same - Procedure Note Primary Surgeon: miguel Anesthesia Technique: General ET tube Estimated Blood Loss (mL): 50 Indications: 57 yo male s/p fall down stairs. Energy could have been moderate to high, sufficient to explain the fracture, but he has h/o osteoporosis. Is status post left femur supracondylar fracture and two different tib-fib fracture episodes in the distant past. Pt wished to procede with surgical stabilization and will p ursue further endocrine workup and internal medicine workup as an outpatient. Findings: fracture was less comminuted than feared and reduced acceptably with closed maneuvers, including blunt pressure on the greater trochaneric spike through out the procedure to optimize reduction. Complications: none - Other Other Information/Narrative: Surgical briefing completed according to hospital policy. Positioned supine on [place] table with GETA and maximal muscle relaxation. Ancef/TXA. Fluoro guidance. 1% lido local in incision. After optimal closed reduction was obtained and maintained with lateral pressure on the greater troch fragment. Guide pin inserted in tip of troch and passed under fluoro to medial cortex. Confirmed in AP and lateral views. Starter reamer while holding reduction of greater troch. The 13mm x 125degree Intertan nail was inserted to the ideal height to achieve center-center position of the cephalomedullary screw. The hip was then placed in additional adduction to better reduce the neck shaft angle. The Cephalomedullary guide pin was inserted to center-center position under fluoro guidance. The trochanteric reduction was maintained throughout this portion of the case. After reaming of the cephalomedullary screw track, the lateral opening for the compression screw was made. The cephalomedullary screw was then passed to planned depth 5mm shy of subcortical bone. The compression screw was then inserted after removing traction and compression achieved with a good bite and r esulting in a stable construct. The distal interlock screw was then placed with excellent bite in the femoral cortex at that level. Overall the stability and quality of reduction seemed adequate to provide optimal fixation for this patient and avoided the need to remove fully or partially the distal femoral plate. Wounds were copiously irrigated and treated with vancomycin powder 1g. The proximal gluteus fascia split was closed with 0-vicryl, the subcutaneous fascia closed with 2-0 stratafix, skin with 3-0 Stratafix subdermal layer, and a 3-0 monocryl subcuticular. Post operative plan will be Flat foot (similar to toe touch) weightbearing x 6 weeks, followed by 50% PWB x 6 weeks followed by WBAT. DVT prophylaxis with 81mg ASA bid x 4 weeks in this patient with no significant risk factors for VTE.
[2023-04-05] MEDS ORDERED: LACTATED RINGERS 1,000 ML IV ONE (16:03)
--- NOTE | 2023-04-05 16:28 | ANESTHESIA POST OP EVALUATION ---
Anesthesia Post Eval - Post Anesthesia Eval Vitals: Last Vital Signs Temp 36.6 C 04/05/23 16:03 Pulse 89 04/05/23 16:25 Resp 10 L 04/05/23 16:25 BP 152/75 H 04/05/23 16:25 Pulse Ox 93 04/05/23 16:25 O2 Flow Rate 0.5 04/04/23 19:00 CV Function Including HR & BP: Stable Pain Control: Satisfactory (ice and meds for 11/16) Nausea & Vomiting: Negative Mental Status: Baseline Respiratory Status: Airway Patent Hydration Status: Satisfactory Anesthesia Complications: None
[2023-04-05] MEDS ORDERED: ceFAZolin (2G) 2 GM in SODIUM CHLORIDE 0.9% MINIBAG 100 ML IV SCH (17:00)
[2023-04-05] MEDS: NS W/20 MEQ KCL 1,000 ML IV SCH (17:04)
[2023-04-05] MEDS: HYDROmorphone 0.5 MG/0.5 ML SYRINGE IVP PRN (17:04)
[2023-04-05] MEDS: CARBOXYMETHYLCELLULOSE OPHTH DROPS EACHEYE PRN ×2 (17:13→20:11)
[2023-04-05] MEDS: amLODIPine 5 MG TABLET PO SCH (20:14)
[2023-04-05] MEDS: CETIRIZINE 10 MG TABLET PO SCH (20:14)
[2023-04-05] MEDS: CALAMINE/ZINC OXIDE 177 ML BOTTLE TOP PRN (20:14)
[2023-04-05] MEDS: ASPIRIN EC 81 MG TABLET PO SCH (20:14)
[2023-04-05] MEDS ORDERED: FENOFIBRATE 48 MG TABLET PO SCH (21:00)
[2023-04-05] MEDS: ceFAZolin (2G) 2 GM in SODIUM CHLORIDE 0.9% MINIBAG 100 ML IV SCH (21:41)
[2023-04-05] MEDS: ACETAMINOPHEN 500 MG TABLET PO SCH (21:41)
[2023-04-06] MEDS: NS W/20 MEQ KCL 1,000 ML IV SCH (02:15)
[2023-04-06] MEDS: SODIUM CHLORIDE FLUSH 0.9% 10 ML SYRINGE IVP SCH ×2 (02:16→09:03)
[2023-04-06] MEDS: ceFAZolin (2G) 2 GM in SODIUM CHLORIDE 0.9% MINIBAG 100 ML IV SCH (05:09)
[2023-04-06] MEDS: CYCLOBENZAPRINE 10 MG TABLET PO PRN (05:11)
[2023-04-06] MEDS: ACETAMINOPHEN 500 MG TABLET PO SCH (05:11)
[2023-04-06] MEDS: oxyCODONE 5 MG TABLET PO PRN (05:12)
[2023-04-06 05:26] LABS: BASOPHILS % (AUTO) 0.3 %; EOSINOPHILS % (AUTO) 0.3 %; HCT - HEMATOCRIT 33.9 % (42.0-52.0); HGB - HEMOGLOBIN 11.2 g/dL (14.0-18.0); LYMPHOCYTES # (AUTO) 0.8 10^3/uL (1.5-3.5); LYMPHOCYTES % (AUTO) 10.5 %; MEAN CORPUSCULAR HEMOGLOBIN 34.1 pg (27.0-31.0); MEAN CORPUSCULAR VOLUME 103.4 fL (80.0-94.0); MEAN PLATELET VOLUME 10.1 fL (7.4-11.4); MONOCYTES # (AUTO) 0.7 10^3/uL (0.0-1.0); MONOCYTES % (AUTO) 9.5 %; NEUTROPHILS # (AUTO) 6.2 10^3/uL (1.5-6.6); PLT - PLATELET COUNT 140 10^3/uL (130-450); RED BLOOD COUNT 3.28 10^6/uL (4.70-6.10); RED CELL DISTRIBUTION WIDTH 13.1 % (12.0-15.0); WHITE BLOOD COUNT 7.8 x10^3/uL (4.8-10.8)
[2023-04-06 07:49] VITALS: O2SAT 98
[2023-04-06] MEDS: ASPIRIN EC 81 MG TABLET PO SCH (07:52)
[2023-04-06] MEDS: busPIRone 5 MG TABLET PO SCH (07:52)
[2023-04-06] MEDS: CELECOXIB 100 MG CAPSULE PO SCH (07:54)
[2023-04-06] MEDS: NICOTINE 14 MG PATCH TOP SCH (07:55)
[2023-04-06] MEDS ORDERED: ENOXAPARIN 40 MG/0.4 ML SYRINGE SUBQ SCH (09:00)
[2023-04-06] MEDS ORDERED: DOCUSATE SODIUM 100 MG CAPSULE PO SCH (09:00)
[2023-04-06] MEDS: CHOLECALCIFEROL 400 UNIT TABLET PO SCH (09:04)
--- NOTE | 2023-04-06 09:25 | Discharge Plan ---
Discharge Plan Problem Reviewed?: Yes Disposition: Home Health Service Condition: Good Prescriptions: oxyCODONE [Roxicodone] 5 mg PO Q6HR PRN #30 tab PRN Reason: Severe Breakthrough pain(8-10) Diet: Regular Activity Restrictions: Wt Bearing as Tolerated Shower Restrictions: No Driving Restrictions: Yes (no dirving ) Assistance Devices: Walker Weight Bearing: Partial Weight Health Concerns: Unfortunately you have a long history of osteoporosis and fell and broke her hip. You underwent surgery on April 05. Remarkably you are able to stand today. You are able to weight-bear. And you and physical therapy both feel that you are safe to go home with home health and PT/OT. Plan of Treatment: I will be sending you home with home health nursing to look at your wound, and physical and Occupational Therapy to help you get your strength back and navigate your house. Please see the orthopedic surgeon when indicated. Care Goals: To regain complete mobility and return to work in the next few weeks Orthopedic surgery and the orthopedic PA have given you discharge instructions. Those are under separate dictation. Please follow through on those. The most important of which is seeing him in the next 2 weeks. Assessment: Patient is alert, oriented, understands date time and situation. States that he has friends and family that will be helping him with logistics of getting up out of bed, doing PT, getting food brought to him. He wishes to go home today. He is postop day #1 Follow-Up Care: Home Health - RN, Home Health - PT, Home Health - OT No Smoking: If you smoke, Please STOP! Call for help.
--- NOTE | 2023-04-06 09:57 | DISCHARGE SUMMARY ---
"Discharge Summary Admit Date: 04/04/23 Discharge Date: 04/06/23 Discharging Provider: Shanti Rodriguez MD Primary Care Provider: ELIZABETH Naidu Code Status: Attempt Resuscitation Condition at Discharge: Good Discharge Disposition: Home Health Service - DIAGNOSES Discharge Diagnoses with Status of Each Condition: 1. Left femur fracture 2. Mechanical fall down stairs 3. Osteoporosis 4. Hyperlipidemia 6. Generalized anxiety disorder - HPI History of Present Illness: 57 y old male with PMH HTN, Hyperlipidemia, anxiety, osteoporosis came with with C/O hip pain. As per pt, he tripped and fell while going downstairs.Denies LOC or head injury, chest pain, SOB, AZEVEDO, fever, nausea, vomiting Xray showed communiated intertrochenteric fracture of left femur As per ER physician, he consulted with ortho intervention nurse (Dr Baltazar) In ER , patient received iv dilaudid Patient is admitted to our service due to left hip fracture - Past Medical History Cardiovascular: reports: None Respiratory: reports: None Endocrine/Autoimmune: reports: None GI: reports: None : reports: Kidney stones HEENT: reports: None Psych: reports: Anxiety Musculoskeletal: reports: None Derm: reports: None MRSA Hx?: No - CONSULTS | PROCEDURES Procedures: Pelvis x-ray showed a comminuted trochanteric fracture of the left hip with varus angulation, no other fractures Femur x-ray showed status post distal femur and proximal tibia fixation without evidence of hardware complication. Comminuted trochanteric left femur fracture. Chest x-ray with left basilar streaky opacities and atelectasis versus aspiration Lower extremity CT had comminuted mildly posteriorly displaced left femur intertrochanteric fracture. Left hip joint intact. On a [place] table, a 13 mm x 125 degree InterTAN nail insertion was reduction of fracture, April 05 - HOSPITAL COURSE Hospital Course: Patient was admitted on April 04, operated on April 05. Minimal blood loss with surgery. Usual hemoglobin is 14.6. With his fracture he was 12.9. Postoperatively he was 11.2. He did not require transfusion. On postop day #1 he was standing. Instructions are for flat foot weightbearing. No toe-touch. Patient and physical therapy worked well on postop day 0 and postop day 1. On postop day 1 he was walking over 25 feet with pain controlled. Patient felt he could go home safely with home health PT and OT. As such the patient is discharged to home. We are asking him to see orthopedic surgery in a week. He does not have any sutures or leonard. He can take a shower but not take a bath. Keep the wound clean and dry. Pain medicine will be Tylenol as needed, oxycodone 5 mg every 4 hours as needed. I am not recommending any further nonsteroidal therapy since DVT prophylaxis will be aspirin 81 mg p.o. twice daily. He has a history of osteoporosis. He says that he did get a hyperparathyroid level done years ago. Maybe 20. It is unclear why he has osteoporosis. Before discharge a hyperparathyroid level was ordered. It is pending at the time of discharge. At discharge patient is afebrile at 36.7. Heart rate is 76. Blood pressure 136/86. Respirations 16. 98% on room air. At 5 foot 10 inches tall, 70.5 kg he is a slender, lean body mass gentleman who looks older than stated age. Fatigued appearing. But able to go from supine to sitting to standing. Needs standby assist from PT to be able to be flatfoot weightbearing and walk over 25 feet with a walker. Lungs are clear. Regular rate and rhythm. Abdominal exam is benign. Wound is closed, healed, no oozing or drainage. Discharged in stable condition. Greater than 30 minutes was spent coordinating discharge. This document was made in part using voice recognition software. While efforts are made to proofread this document, sound alike and grammatical errors may occur. - ALLERGIES Allergies/Adverse Reactions: Allergies Allergy/AdvReac Type Severity Reaction Status Date / Time No Known Drug Allergies Allergy Verified 04/03/23 22:51 - MEDICATIONS Home Medications: Ambulatory Orders Medication Instructions Recorded Confirmed Amlodipine Besylate/Benazepril 1 each PO QPM 04/04/23 04/04/23 [Lotrel 10-20 mg Capsule] Buspirone HCl 10 mg PO BID 04/04/23 04/04/23 Cetirizine HCl [Allergy] 1 tab PO QPM 04/04/23 04/04/23 Cholecalciferol [Vitamin D3] 1 cap PO QPM 04/04/23 04/04/23 Fenofibrate Nanocrystallized 145 mg PO QPM 08/27/23 08/27/23 [Tricor] Multivitamin 1 tab PO QPM 04/04/23 04/04/23 Aspirin EC [Ecotrin] 81 mg PO BID tab 04/06/23 oxyCODONE [Roxicodone] 5 mg PO Q6HR PRN #30 tab 04/06/23 - LABS Result Diagrams: 04/06/23 05:15 04/03/23 23:08"
[2023-04-06 10:05] VITALS: BP 136/86
--- NOTE | 2023-04-06 10:36 | PROVIDER PROGRESS NOTE ---
Subjective - General Admit Date: 04/04/23 Procedure Date: 04/05/23 Post Op Days: 1 Procedure Performed: IM Nail of left femur for intertrochanteric fracture, left hip - Other Other Information/Narrative: Patient denies dyspnea, chest pain, nausea, vomiting Pain is well controlled with current regimen He was able to work with physical therapy this morning with flat floot weightbearing on left lower extremity, using front wheeled walker as assist device, reportedly ambulated 25 feet Patient voices desire to return home today, he states his has obtained a walker to be used at home Objective - Patient Data Reviewed Vital Signs: Yes Vital Signs: Vital Signs x48h Temp Pulse Pulse Resp BP BP Pulse Ox 04/06/23 08:30 76 136/86 H 04/06/23 07:42 36.7 C 82 16 110/75 98 04/06/23 05:00 36.4 C L 74 16 135/84 H 100 Weight: Weight 04/04/23 04/05/23 04/06/23 23:59 23:59 23:59 Weight (kg) 70.5 kg 70.5 kg Intake & Output: Intake and Output Totals x24h 04/04/23 04/05/23 04/06/23 23:59 23:59 23:59 Intake Total 1450 3571.663 1468.333 Output Total 2525 2075 775 Balance -1075 1496.663 693.333 - Lab Results Lab Results: 04/06/23 05:15 04/03/23 23:08 Other Lab Results: Lab Results x24hrs 04/06/23 04/04/23 Range/Units 05:15 03:00 WBC 7.8 (4.8-10.8) x10^3/uL RBC 3.28 L (4.70-6.10) 10^6/uL Hgb 11.2 L (14.0-18.0) g/dL Hct 33.9 L (42.0-52.0) % MCV 103.4 H (80.0-94.0) fL MCH 34.1 H (27.0-31.0) pg MCHC 33.0 (32.0-36.0) g/dL RDW 13.1 (12.0-15.0) % Plt Count 140 (130-450) 10^3/uL MPV 10.1 (7.4-11.4) fL Neut # (Auto) 6.2 (1.5-6.6) 10^3/uL Lymph # (Auto) 0.8 L (1.5-3.5) 10^3/uL [place] # (Auto) 0.7 (0.0-1.0) 10^3/uL Eos # (Auto) 0.0 (0.0-0.7) 10^3/uL Baso # (Auto) 0.0 (0.0-0.1) 10^3/uL Absolute Nucleated RBC 0.00 x10^3/uL Nucleated RBC % 0.0 /100WBC Vitamin D 25-Hydroxy 38.4 (30.0-100.0) ng/mL - Current Medications Current Medications: Current Medications Generic Name Dose Route Start Last Admin Trade Name Freq PRN Reason Stop Dose Admin Acetaminophen 1,000 mg 04/05/23 22:00 04/06/23 05:11 Acetaminophen 500 Mg Tablet PO 1,000 mg TID FREDA Administration Amlodipine Besylate 5 mg 04/04/23 21:00 04/05/23 20:14 Amlodipine 5 Mg Tablet PO 5 mg QPM FREDA Administration Aspirin 81 mg 04/05/23 21:00 04/06/23 07:52 Aspirin Ec 81 Mg Tablet PO 81 mg BID FREDA Administration Buspirone HCl 10 mg 04/04/23 12:00 04/06/23 07:52 Buspirone 5 Mg Tablet PO 10 mg BID FREDA Administration Calamine 1 applic 04/04/23 15:44 04/05/23 20:14 Calamine/Zinc Oxide 177 Ml Bottle TOP 1 applic PRN PRN Administration SKIN CARE Carboxymethylcellulose 1 drops 04/05/23 16:57 04/05/23 20:11 Carboxymethylcellulose Ophth Drops EACHEYE 1 applic PRN PRN Administration Dry Eye Celecoxib 200 mg 04/04/23 21:00 04/06/23 07:54 Celecoxib 100 Mg Capsule PO 200 mg BID FREDA Administration Cetirizine HCl 10 mg 04/04/23 21:00 04/05/23 20:14 Cetirizine 10 Mg Tablet PO 10 mg QPM FREDA Administration Cholecalciferol 400 unit 04/05/23 09:00 04/06/23 09:04 Cholecalciferol 400 Unit Tablet PO 400 unit DAILY FREDA Administration Cyclobenzaprine HCl 10 mg 04/04/23 12:34 04/06/23 05:11 Cyclobenzaprine 10 Mg Tablet PO 10 mg TID PRN Administration Spasms Docusate Sodium 100 mg 04/06/23 09:00 04/06/23 09:04 Docusate Sodium 100 Mg Capsule PO 100 mg DAILY FREDA Administration Fenofibrate 144 mg 04/05/23 21:00 04/05/23 20:12 Fenofibrate 48 Mg Tablet PO 144 mg QPM FREDA Administration Gabapentin 800 mg 04/04/23 10:18 04/06/23 07:53 Gabapentin 400 Mg Capsule PO 800 mg TID PRN Administration PAIN 5-7 Hydromorphone HCl 0.5 mg 04/04/23 03:37 04/05/23 17:04 Hydromorphone 0.5 Mg/0.5 Ml Syringe IVP 0.5 mg Q2H PRN Administration Pain 8 to 10 Potassium Chloride/Sodium Chloride 1,000 mls @ 100 mls/hr 04/05/23 17:00 04/06/23 02:15 Normal Saline 0.9% W/20 Meq Kcl IV 100 mls/hr .Q10H FREDA Administration Nicotine 1 patch 04/05/23 11:00 04/06/23 07:55 Nicotine 14 Mg Patch TOP 1 patch DAILY FREDA Administration Oxycodone HCl 5 mg 04/05/23 16:05 04/06/23 05:12 Oxycodone 5 Mg Tablet PO 5 mg Q6HR PRN Administration Severe Breakthrough pain(8-10) Sodium Chloride 10 ml 04/04/23 09:00 04/06/23 09:03 Sodium Chloride Flush 0.9% 10 Ml Syringe IVP Not Given 0100,0900,1700 [facility] - Physical Exam Comments/Other: Well-developed, well-nourished, 57-year-old male, no acute distress, semi- recumbent in bed accompanied by nursing staff Alert and oriented x3 Dressings are dry and intact with small hematoma about the proximal dressing, no drainage Aquino catheter in place Neurovascular intact to left lower extremity ABX Reporting Has patient been on IV antibiotics over the past 48 hours?: Yes Impression/Plan - Problem List Problem List: 57-year-old male with past medical history of hypertension and osteoporosis is postoperative day 1 from a short intramedullary nail for a left femur intertrochanteric-subtrochanteric fracture of the left hip. Short IM nail in left femur with [employer] performed by Dr. Baltazar on 04/05/2023 at [facility]. Patient is tolerating oral diet well without nausea or vomiting and has adequate pain control. He worked with physical therapy this morning and was reportedly able to ambulate around the halls with front wheeled walker. Plan: - Aspirin 81 mg twice daily for 6 weeks for deep venous thrombosis prophylaxis - Tylenol, ibuprofen and oxycodone for pain management in outpatient setting - Flatfoot weightbearing with front wheeled walker at all times - Recommend home health PT - Follow-up with orthopedic within one week of discharge - Mepilex dressings to remain in place, can shower with dressing in place - No sutures or leonard to be removed - Endocrinology referral for osteoporosis - Follow up with PCP regarding vitamin D levels
== END 2023-04-06 12:20 | disposition home health service (06) | DRG 482 ==
LOC: EDUNIT# → ED 22:47 → MS2 04-04 03:37
PROVIDERS: ADMIT Internal Medicine; ATTEND Specialist
PROC: 0QS736Z Reposition Left Upper Femur with Intramedullary Internal Fixation Device, Percutaneous Approach (ICD-10-PCS; principal; 2023-04-04)
DX: S72.142A Displaced intertrochanteric fracture of left femur, initial encounter for closed fracture (principal); W10.9XXA Fall (on) (from) unspecified stairs and steps, initial encounter; I10 Essential (primary) hypertension; M81.0 Age-related osteoporosis without current pathological fracture; E78.5 Hyperlipidemia, unspecified; F41.1 Generalized anxiety disorder; G89.29 Other chronic pain; M54.50 Low back pain, unspecified; F17.200 Nicotine dependence, unspecified, uncomplicated; E78.1 Pure hyperglyceridemia; Z79.899 Other long term (current) drug therapy
CPT/HCPCS: 36415; 71045; 72170; 73552; 73700; 80053; 80306; 82306; 83036; 83690; 83970; 85025; 85610; 85730; 86850; 86900; 86901; 93005; 96374; 96376; 97116; 97161; 99285; A9270; J1170; J2795; J3370; J7120

== ENCOUNTER 2023-04-04 08:00 | Outpatient (CLI) | payer OTHER ==
[2023-04-04 11:53] LABS: BASOPHILS # (AUTO) 0.1 10^3/uL (0.0-0.1); BASOPHILS % (AUTO) 0.6 %; EOSINOPHILS # (AUTO) 0.1 10^3/uL (0.0-0.7); EOSINOPHILS % (AUTO) 1.3 %; HCT - HEMATOCRIT 37.7 % (42.0-52.0); HGB - HEMOGLOBIN 12.6 g/dL (14.0-18.0); LYMPHOCYTES # (AUTO) 1.5 10^3/uL (1.5-3.5); MEAN CORPUSCULAR HEMOGLOBIN 33.2 pg (27.0-31.0); MEAN CORPUSCULAR HGB CONC 33.4 g/dL (32.0-36.0); MEAN CORPUSCULAR VOLUME 99.5 fL (80.0-94.0); MEAN PLATELET VOLUME 9.8 fL (7.4-11.4); MONOCYTES # (AUTO) 0.9 10^3/uL (0.0-1.0); NEUTROPHILS # (AUTO) 6.3 10^3/uL (1.5-6.6); NEUTROPHILS % (AUTO) 70.7 %; PLT - PLATELET COUNT 177 10^3/uL (130-450); RED BLOOD COUNT 3.79 10^6/uL (4.70-6.10); RED CELL DISTRIBUTION WIDTH 13.5 % (12.0-15.0); WHITE BLOOD COUNT 8.9 x10^3/uL (4.8-10.8)
[2023-04-04 12:11] LABS: ALBUMIN 4.2 g/dL (3.2-5.5); ALBUMIN/GLOBULIN RATIO 1.8 (1.0-2.2); ALKALINE PHOSPHATASE 30 IU/L (42-121); ALT ALANINE AMINOTRANSFERASE 17 IU/L (10-60); AST ASPARTATE AMINOTRANSFERASE 17 IU/L (10-42); BILIRUBIN,TOTAL 0.7 mg/dL (0.2-1.0); BUN - BLOOD UREA NITROGEN 9 mg/dL (6-20); CALCIUM 8.9 mg/dL (8.5-10.3); CARBON DIOXIDE - CO2 26 mmol/L (21-32); CHLORIDE 104 mmol/L (101-111); CHOL/HDL RATIO 4.6 (<5.0); CHOLESTEROL 192 mg/dL; CREATININE 0.7 mg/dL (0.6-1.3); GFR - MDRD 117 (>89); GLUCOSE 120 mg/dL (74-104); HDL CHOLESTEROL 42 mg/dL; LDL CHOLESTEROL,CALCULATED 110 mg/dL; LDL/HDL RATIO 2.6 (<3.6); POTASSIUM 3.7 mmol/L (3.5-4.5); SODIUM 135 mmol/L (135-145); TOTAL PROTEIN 6.5 g/dL (6.4-8.9); TRIGLYCERIDES 202 mg/dL (48-352); VLDL CHOLESTEROL 40 mg/dL
== END 2023-04-04 23:59 | disposition home or self-care (01) ==
LOC: LAB 08:00
PROVIDERS: ATTEND Registered Nurse
DX: I10 Essential (primary) hypertension (principal); R73.9 Hyperglycemia, unspecified; E78.1 Pure hyperglyceridemia; Z12.5 Encounter for screening for malignant neoplasm of prostate
CPT/HCPCS: 36415; 80053; 80061; 83721; 84153; 85025

== ENCOUNTER 2023-04-14 08:00 | Outpatient (CLI) | payer OTHER ==
--- NOTE | 2023-04-14 10:35 | XRAY Report ---
PROCEDURE: Hip 2 View LT INDICATIONS: LEFT HIP ORIF TECHNIQUE: 2 views of the hip were acquired. COMPARISON: None. FINDINGS: Bones: Healing intertrochanteric fracture supported by femoral nail and dual femoral neck screws in good position. Fracture fragments are well aligned. Hip joint space preserved. Soft tissues: No suspicious soft tissue calcifications or masses. IMPRESSION: Healing instrumented intratrochanteric fracture in good position Reviewed by: Milton Tillman MD on 04/14/2023 9:33 AM LATAS[facility] Approved by: Milton Tillman MD on 04/14/2023 9:33 AM LATASHA Station ID: [id number]
== END 2023-04-14 23:59 | disposition home or self-care (01) ==
LOC: DI.WOS 08:00
PROVIDERS: ATTEND Orthopaedic Surgery Sports Medicine
DX: S72.142D Displaced intertrochanteric fracture of left femur, subsequent encounter for closed fracture with routine healing (principal)

== ENCOUNTER 2023-06-01 08:00 | Outpatient (CLI) | payer OTHER ==
--- NOTE | 2023-06-01 14:01 | XRAY Report ---
PROCEDURE: Hip 2 View LT INDICATIONS: LEFT HIP ORIF TECHNIQUE: 2 views of the hip were acquired. COMPARISON: None. FINDINGS: Bones: No fractures or dislocations. No suspicious bony lesions. Postoperative changes of trochan teric femoral fixation of the left hip. Mild bilateral degenerative changes. Soft tissues: No suspicious soft tissue calcifications or masses. IMPRESSION: Postoperative changes of trochanteric femoral fixation of the left hip without complication. Reviewed by: Randal Faith on 06/01/2023 1:59 PM PDT Approved by: Randal Faith on 06/01/2023 1:59 PM PDT Station ID: [id number]
== END 2023-06-01 23:59 | disposition home or self-care (01) ==
LOC: DI.WOS 08:00
PROVIDERS: ATTEND Orthopaedic Surgery
DX: S72.002D Fracture of unspecified part of neck of left femur, subsequent encounter for closed fracture with routine healing (principal)

== ENCOUNTER 2024-03-10 07:15 | Outpatient (CLI) | payer OTHER ==
[2024-03-10 15:06] LABS: BASOPHILS # (AUTO) 0.1 10^3/uL (0.0-0.1); BASOPHILS % (AUTO) 1.7 %; EOSINOPHILS # (AUTO) 0.4 10^3/uL (0.0-0.7); EOSINOPHILS % (AUTO) 6.9 %; HCT - HEMATOCRIT 41.7 % (42.0-52.0); HGB - HEMOGLOBIN 13.6 g/dL (14.0-18.0); LYMPHOCYTES # (AUTO) 1.6 10^3/uL (1.5-3.5); LYMPHOCYTES % (AUTO) 30.8 %; MEAN CORPUSCULAR HGB CONC 32.6 g/dL (32.0-36.0); MEAN CORPUSCULAR VOLUME 101.2 fL (80.0-94.0); MEAN PLATELET VOLUME 10.7 fL (7.4-11.4); MONOCYTES # (AUTO) 0.6 10^3/uL (0.0-1.0); MONOCYTES % (AUTO) 10.8 %; NEUTROPHILS # (AUTO) 2.6 10^3/uL (1.5-6.6); NEUTROPHILS % (AUTO) 49.2 %; PLT - PLATELET COUNT 261 10^3/uL (130-450); RED BLOOD COUNT 4.12 10^6/uL (4.70-6.10); RED CELL DISTRIBUTION WIDTH 13.7 % (12.0-15.0); WHITE BLOOD COUNT 5.2 x10^3/uL (4.8-10.8)
[2024-03-10 15:35] LABS: ALBUMIN 4.9 g/dL (3.2-5.5); ALBUMIN/GLOBULIN RATIO 2.2 (1.0-2.2); ALKALINE PHOSPHATASE 35 IU/L (42-121); ALT ALANINE AMINOTRANSFERASE 52 IU/L (10-60); AST ASPARTATE AMINOTRANSFERASE 60 IU/L (10-42); BILIRUBIN,TOTAL 0.5 mg/dL (0.2-1.0); BUN - BLOOD UREA NITROGEN 12 mg/dL (6-20); CALCIUM 9.8 mg/dL (8.5-10.3); CARBON DIOXIDE - CO2 26 mmol/L (21-32); CHLORIDE 104 mmol/L (101-111); CHOLESTEROL 161 mg/dL; CREATININE 1.2 mg/dL (0.6-1.3); GFR - MDRD 63 (>89); GLUCOSE 157 mg/dL (74-104); HDL CHOLESTEROL 40 mg/dL; LDL CHOLESTEROL,CALCULATED 67 mg/dL; LDL/HDL RATIO 1.7 (<3.6); POTASSIUM 5.6 mmol/L (3.5-4.5); SODIUM 137 mmol/L (135-145); TOTAL PROTEIN 7.1 g/dL (6.4-8.9); TRIGLYCERIDES 268 mg/dL; VLDL CHOLESTEROL 54 mg/dL
[2024-03-10 15:53] LABS: THYROID STIMULATING HORMONE 1.76 uIU/mL (0.34-5.60)
== END 2024-03-10 07:16 | disposition home or self-care (01) ==
LOC: LAB.S 07:15
PROVIDERS: ATTEND Registered Nurse
DX: I10 Essential (primary) hypertension (principal); E78.1 Pure hyperglyceridemia; Z12.5 Encounter for screening for malignant neoplasm of prostate
CPT/HCPCS: 36415; 80053; 80061; 83721; 84153; 84443; 85025